=== PATIENT | female | born 1965 | race Caucasian/White ===

== ENCOUNTER 2020-05-09 12:50 | Emergency (ER) | payer OTHER, MEDICAID, SELFPAY ==
[2020-05-09 13:01] VITALS: BP 100/68; PULSE 104; RESP 20; TEMP 37.3; O2SAT 93; BMI 31.6
--- NOTE | 2020-05-09 13:19 | XR_ITS ---
WS: [id number] XR chest 1V portable [id number] REASON FOR EXAM: SOB, fever FINDINGS: The heart and mediastinum are within normal limits. No active pulmonary parenchymal pleural disease is noted. The bony thorax is intact. XR/XR chest 1V portable [id number] IMPRESSION: No acute chest abnormality identified.
--- NOTE | 2020-05-09 13:21 | W.ED.COVID ---
HPI - COVID General: Chief Complaint: COVID symptoms Stated Complaint: H/A, FEVER @ HOME 101.2 Time Seen by Provider: 05/09/20 12:56 Source: patient Mode of arrival: ambulatory Limitations: no limitations Triage information: Has fever, cough or shortness of breath. Exposure to COVID + person last 14 days History of Present Illness: HPI Narrative: Patient is a 55-year-old female whose currently has COVID-19. She states that yesterday she developed a headache and a fever and generalized body aches. Symptoms have been gradually worsening and today she had a temperature of 101.2. She has severe nausea but no vomiting. She is here to be evaluated. She is not diabetic, hypertensive, has no lung disease, he is not on any immunosuppressants, does not have chronic kidney disease. MD complaint: reported COVID exposure and has COVID symptoms Prior covid testing: no COVID 19 common symptoms: positive fever(s), chills, cough, non-productive cough, dyspnea, fatigue, body aches, headache(s), nasal congestion and nausea; negative productive cough, loss of sense of smell and/or taste, throat pain, vomiting or diarrhea COVID 19 other sytmptoms: negative chest pressure, chest pain, pleuritic pain, requiring oxygen, requiring more oxygen, respiratory distress, cyanosis, lethargy, confusion, new neurological complaints or other concerning symptoms Onset (ago): day(s) (1) Severity: moderate Treatment prior to arrival: acetaminophen and ibuprofen COVID Results: SARS-CoV-2 Antigen (Rapid) Positive (Negative) H 05/09/20 13:46 05/09/20 Nasal/Oral Coronavirus 2019 PCR Pending 05/09/20 13:45 05/09/20 Review of Systems General: Reports: 10 or more systems reviewed and unremarkable except in HPI and below Const: Reports: fever(s), chills, body aches and fatigue Eyes: Denies: change in vision or blurry vision ENMT: Reports: nasal congestion; Denies: throat pain Card: Denies: chest pain Resp: Reports: dyspnea and non-productive cough; Denies: productive cough GI: Reports: nausea; Denies: vomiting or diarrhea : Denies: flank pain, difficulty voiding, dysuria, urinary frequency, urinary urgency or urinary hesitancy Musc: Denies: neck pain, back pain or extremity swelling Skin/Breast: Denies: rash, pruritus or erythema Neuro: Reports: headache(s); Denies: confusion Endo: Denies: polyuria, polydipsia or tired all the time Physical Exam Const: COMMON NORMALS: no acute distress, average body habitus, patient oriented x3, no limitations, healthy appearing, alert and well nourished HENMT: COMMON NORMALS: normocephalic, atraumatic and moist oral mucous membranes HEAD & SCALP: normocephalic and atraumatic Neck/C-Spine: COMMON NORMALS: full ROM, supple, no meningeal signs, no JVD and No carotid bruits Resp: COMMON NORMALS: normal respiratory effort, No retractions, No use of accessory muscles, clear to auscultation bilaterally and percussion normal AUSCULTATION: clear to auscultation bilaterally PERCUSSION: percussion normal Cardio: COMMON NORMALS: no JVD, regular rate, regular rhythm, S1 normal heart sound present, S2 normal heart sound present, No gallops present (Cardio), No clicks present (Cardio), No murmurs present (Cardio), No rub (Cardio) and Peripheral pulses 2+ throughout RATE: regular rate RHYTHM: regular rhythm HEART SOUNDS: S1 normal heart sound present and S2 normal heart sound present PERIPHERAL PULSES: Peripheral pulses 2+ throughout GI: COMMON NORMALS: Normal to inspection, nondistended, normoactive bowel sounds present, Soft to palpation, non-tender, No hepatosplenomegaly present, no masses and no bruits PALPATION: Yes Soft to palpation and Yes No hepatosplenomegaly present Neuro: COMMON NORMALS: patient oriented x3 SENSORIUM/ORIENTATION: Yes alert MENINGEAL SIGNS: Yes no meningeal signs Skin: COMMON NORMALS: no rashes or lesions noted, no wounds, turgor normal, no jaundice, no petechiae and no mottling GENERAL SKIN EXAM: no rashes or lesions noted and turgor normal Course Reevaluation(s): Reevaluation #1: Discussed her lab and imaging findings with her. She is positive for COVID-19. Her labs pretty good and her inflammatory markers are not significantly elevated. She does not qualify for Bamlanivimab infusion as she has no comorbidities. We will discharge her home with antiemetics. She is advised to take Tylenol or ibuprofen as needed and to keep well-hydrated. She voiced understanding and is in agreement with the plan. Time: 15:29 Vital Signs: Vital signs: Vital Signs Temperature 99.1 F 05/09/20 13:01 Pulse Rate 85 05/09/20 16:51 Respiratory Rate 18 05/09/20 16:51 Blood Pressure 107/81 05/09/20 16:51 Pulse Oximetry 98 05/09/20 16:51 MDM - COVID MDM Narrative: Medical decision making narrative: 54-year-old female patient who presented to the emergency department with symptoms consistent with a viral illness. She had headaches, body aches, fever. Her was recently diagnosed with COVID-19. And she tested positive for COVID-19 here. Her inflammatory markers were low and she has no comorbidities, so she does not qualify for vomiting Bamlanivimab infusion. She is discharged home with a pulse oximeter. She did not qualify for home oxygen. She had a mild case of hypokalemia. Medical Records: Attestation: I reviewed the patient's medical records. Lab Data: Attestation: I reviewed the patient's lab results. Labs: Lab Results 05/09/20 05/09/20 05/09/20 Range/Units 13:40 13:40 13:40 WBC 6.1 (4.0-10.0) 10^3/ uL RBC 4.26 (4.1-5.3) 10^6/u L Hgb 13.2 (11.5-15.3) g/dL Hct 39.5 (37.0-47.0) % MCV 92.7 (81-99) fL MCH 31.0 (28.0-34.0) pg MCHC 33.4 (30.0-36.0) g/dL RDW 13.2 (12.1-15.1) % Plt Count 228 (130-400) 10^3/c mm MPV 9.7 (7.4-10.4) fL Neut % (Auto) 63.0 % Lymph % (Auto) 26.7 % Dickenson % (Auto) 8.4 % Eos % (Auto) 1.0 % Baso % (Auto) 0.7 % Neut # (Auto) 3.83 (1.8-7.7) 10^3/u L Lymph # (Auto) 1.6 (0.8-4.8) 10^3/u L Dickenson # (Auto) 0.5 (0.2-0.9) 10^3/u L Eos # (Auto) 0.1 (0.0-0.8) 10^3/u L Baso # (Auto) 0.0 (0.0-0.1) 10^3/u L Nucleated RBC % (a uto) 0 % Nucleated RBCs # 0.0 /100WBC D-Dimer 0.83 H (0-0.59) ug/mIFE U Sodium 140 (136-145) mmol/L Potassium 3.2 L (3.5-5.1) mmol/L Chloride 103 (98-107) mmol/L Carbon Dioxide 25 (22-29) mmol/L Anion Gap 15.2 (5-19) BUN 10 (6-20) mg/dL Creatinine 0.7 (0.5-0.9) mg/dL GFR Calculation 87.9 L (90-130) mL/min Glucose 133 H (65-115) mg/dL Calculated Osmolal ity 291 (285-295) mOsm/k g Lactic Acid (0.5-2.2) mmol/L Calcium 8.9 (8.5-10.5) mg/dL Total Bilirubin 0.2 (0.15-1.2) mg/dL AST 21 (0-32) U/L ALT 18 (0-33) U/L Alkaline Phosphata se 83 (35-105) IU/L C-Reactive Protein 8.4 H (0.0-4.9) mg/L Total Protein 6.7 (6.6-8.7) g/dL Albumin 3.9 (3.5-5.2) g/dL Globulin 2.8 (1.3-4.6) g/dL Procalcitonin 0.03 (0-0.5) ng/mL SARS-CoV-2 Ag (Rap id) (Negative) 05/09/20 05/09/20 Range/Units 13:40 13:46 WBC (4.0-10.0) 10^3/ uL RBC (4.1-5.3) 10^6/u L Hgb (11.5-15.3) g/dL Hct (37.0-47.0) % MCV (81-99) fL MCH (28.0-34.0) pg MCHC (30.0-36.0) g/dL RDW (12.1-15.1) % Plt Count (130-400) 10^3/c mm MPV (7.4-10.4) fL Neut % (Auto) % Lymph % (Auto) % Dickenson % (Auto) % Eos % (Auto) % Baso % (Auto) % Neut # (Auto) (1.8-7.7) 10^3/u L Lymph # (Auto) (0.8-4.8) 10^3/u L Dickenson # (Auto) (0.2-0.9) 10^3/u L Eos # (Auto) (0.0-0.8) 10^3/u L Baso # (Auto) (0.0-0.1) 10^3/u L Nucleated RBC % (a uto) % Nucleated RBCs # /100WBC D-Dimer (0-0.59) ug/mIFE U Sodium (136-145) mmol/L Potassium (3.5-5.1) mmol/L Chloride (98-107) mmol/L Carbon Dioxide (22-29) mmol/L Anion Gap (5-19) BUN (6-20) mg/dL Creatinine (0.5-0.9) mg/dL GFR Calculation (90-130) mL/min Glucose (65-115) mg/dL Calculated Osmolal ity (285-295) mOsm/k g Lactic Acid 1.1 (0.5-2.2) mmol/L Calcium (8.5-10.5) mg/dL Total Bilirubin (0.15-1.2) mg/dL AST (0-32) U/L ALT (0-33) U/L Alkaline Phosphata se (35-105) IU/L C-Reactive Protein (0.0-4.9) mg/L Total Protein (6.6-8.7) g/dL Albumin (3.5-5.2) g/dL Globulin (1.3-4.6) g/dL Procalcitonin (0-0.5) ng/mL SARS-CoV-2 Ag (Rap id) Positive H (Negative) Imaging Data: CXR: Attestation: I personally reviewed and interpreted this imaging study as follows: Radiologist's impression: [address] [place] [address] XRay Report Signed Patient: Charito Israel #: [id number] : 1965Acct#:[id number] Age/Sex: 54 / FADM Date: 05/09/20 Loc: ERRoom/Bed: Attending Dr: Ordering Provider/Ordering MD: Denzel Abernathy MD, [facility] [place] Date of Service: 05/09/20 Procedure(s): XR chest 1V portable [id number] Accession Number(s): [id number] Report Number: [id number] WS: [id number] XR chest 1V portable [id number] REASON FOR EXAM: SOB, fever FINDINGS: The heart and mediastinum are within normal limits. No active pulmonary parenchymal pleural disease is noted. The bony thorax is intact. XR/XR chest 1V portable [id number] IMPRESSION: No acute chest abnormality identified. Dictated By:Maninder Shah Jr, MD Signed By:Maninder Shah Jr MDSigned Date/Time:05/09/201336 DD/ 133 COVID Results: SARS-CoV-2 Antigen (Rapid) Positive (Negative) H 05/09/20 13:46 05/09/20 Nasal/Oral Coronavirus 2019 PCR Pending 05/09/20 13:45 05/09/20 Discharge Plan Discharge Patient Disposition: Home Clinical Impression: COVID-19, Hypokalemia Condition: Stable Prescriptions: New Zofran 4 mg tablet 4 mg PO Q8H PRN (Reason: nausea and vomiting) Qty: 20 RF: 0 Continued multivitamin Tablet 1 tab PO DAILY@08 RF: 0 venlafaxine 150 mg capsule,extended release 24hr 150 mg PO DAILY@08 RF: 0 pantoprazole 40 mg tablet,delayed release (DR/EC) 40 mg PO DAILY@08 RF: 0 cranberry 400 mg Capsule 400 mg PO DAILY@08 RF: 0 vitamin B complex Tablet 1 tab PO DAILY@08 RF: 0 Discharge Orders: Discharge ED (Routine); Ordered 05/09/20 Ordered By: Denzel Abernathy Referrals: Kimberly Begum, STUDENT WORKER [Primary Care Provider] - 1-3 days Discharge Diet: Advance as tolerated Discharge Activity: Increase activity as tolerated Patient Instructions: Viral Syndrome (ED) Activity Restrictions/Additional Instructions: Return for any new or worsening symptoms. You need to self isolate for at least 10 days after your symptoms started and you must be symptom-free for at least 48 hours of pain or fever medication. Take the nausea medicine as needed for nausea. Drink plenty of fluids to keep well-hydrated. Follow-up with your primary care provider within 3 days. Check oxygen levels and if you notice a drop in your oxygen levels consistently below 92% please return for evaluation. Coding Level of Care Code ED Transit Manager for Alphonse Fwolivia Exam Detailed
[2020-05-09 13:52] VITALS: O2SAT 92
[2020-05-09 14:00] LABS: Basophils % 0.7 %; Eosinophils # 0.1 10^3/uL (0.0-0.8); Hematocrit 39.5 % (37.0-47.0); Hemoglobin 13.2 g/dL (11.5-15.3); Lymphocytes # 1.6 10^3/uL (0.8-4.8); Lymphocytes % 26.7 %; Mean Corpuscular HGB Conc 33.4 g/dL (30.0-36.0); Mean Corpuscular Volume 92.7 fL (81-99); Mean Platelet Volume 9.7 fL (7.4-10.4); Monocytes # 0.5 10^3/uL (0.2-0.9); Monocytes % 8.4 %; Neutrophils # 3.83 10^3/uL (1.8-7.7); Nucleated Red Blood Cells % 0 %; Platelet Count 228 10^3/cmm (130-400); Red Blood Count 4.26 10^6/uL (4.1-5.3); Red Cell Distribution Width 13.2 % (12.1-15.1); White Blood Count 6.1 10^3/uL (4.0-10.0)
[2020-05-09 14:17] LABS: SARS Covid-2 Antigen Positive (Negative)
[2020-05-09 14:20] LABS: D Dimer 0.83 ug/mIFEU (0-0.59)
[2020-05-09 14:24] LABS: Lactic Sepsis W/Reflex 1.1 mmol/L (0.5-2.2)
[2020-05-09 14:33] LABS: Procalcitonin 0.03 ng/mL (0-0.5)
[2020-05-09 14:44] LABS: Alanine Aminotransferase 18 U/L (0-33); Albumin Level 3.9 g/dL (3.5-5.2); Alkaline Phosphatase 83 IU/L (35-105); Anion Gap 15.2 (5-19); Aspartate Amino Transferase 21 U/L (0-32); Blood Urea Nitrogen 10 mg/dL (6-20); C Reactive Protein 8.4 mg/L (0.0-4.9); Calcium 8.9 mg/dL (8.5-10.5); Carbon Dioxide 25 mmol/L (22-29); Chloride 103 mmol/L (98-107); Creatinine Clr Calc Pharmacy 101.9197; Globulin 2.8 g/dL (1.3-4.6); Glomerular Filtration Rate 87.9 mL/min (90-130); Glucose 133 mg/dL (65-115); Osmolality Calculated 291 mOsm/kg (285-295); Potassium 3.2 mmol/L (3.5-5.1); Sodium 140 mmol/L (136-145); Total Bilirubin 0.2 mg/dL (0.15-1.2); Total Protein 6.7 g/dL (6.6-8.7)
[2020-05-09 15:41] VITALS: O2SAT 95; O2SAT 98
[2020-05-09] MEDS: ondansetron 2 mg/ML SDV 2 mL 4 MG IVP (16:08)
[2020-05-09] MEDS: potassium chloride oral liq 20 mEq/15 mL UDC 40 MEQ PO (16:08)
[2020-05-09 16:51] VITALS: BP 107/81; PULSE 85; RESP 18; O2SAT 98
== END 2020-05-09 16:48 | disposition home or self-care (01) ==
PROVIDERS: Emergency Provider Family Medicine; PCP Nurse Practitioner Family
DX: U07.1 COVID-19 (principal); E87.6 Hypokalemia
CPT/HCPCS: 12345; 71045; 80053; 83605; 84145; 85025; 85378; 86140; 87426; 96374; 96375; 99283; J2405

== ENCOUNTER → 2020-11-22 12:04 | Outpatient (BNVA) | payer OTHER, SELFPAY | PROVIDERS: PCP Nurse Practitioner Family; Visit Provider Internal Medicine | DX: Z01.812 Encounter for preprocedural laboratory examination (principal); R10.11 Right upper quadrant pain | CPT/HCPCS: 87635 ==

== ENCOUNTER 2020-11-28 08:34 | Day surgery (SDC) | payer OTHER, SELFPAY ==
--- NOTE | 2020-11-28 09:08 | ANES.PREANE2 ---
Pre-Anesthetic Assessment Pre-Anesthetic Assessment: Height/Weight: Height 1.65 m Weight 79.832 kg Temp Pulse Resp BP Pulse Ox 97.7 F 98 18 167/103 97 11/28/20 09:02 11/28/20 09:02 11/28/20 09:02 11/28/20 09:02 11/28/20 09:02 Preop Diagnosis: RUQ pain Proposed Procedure: Operation Date: 11/28/20 09:30 Proposed Procedures p EGD 58044 R10.11(Not Applicable) - Rebel Betts MD Was Beta Pablo taken within 24 hours: N/A Was Clonidine taken within 24 hours: N/A Last intake: Intake Last Liquid Date 11/27/20 Last Liquid Time 20:00 Last Solid Date 11/26/20 Last Solid Time 20:00 Social: Social History: No alcohol and No tobacco Exam: Pre-Anes Outpt Exam: alert, oriented x 3, clear to auscultation bilaterally and regular rate & rhythm Airway: Submandibular: WNL Cervical ROM: WNL MP: 1 Dentition: Full GI: GI: GERD Neuropsych: Neuropsych: Depression Anesthetic Plan: ASA status: 2 Anesthesia: MAC Risk of > 500 ml blood loss (7ml/kg in children): No PFSH Anesthesia PFSH: Family History Other Cancer Diabetes Heart disease Social History Smoking and tobacco status: current every day smoker Alcohol intake: never Marital status: Number of children: 2 service: No History of recent travel: No Data Anesthesia Cardiac Studies: No Data to Display
[2020-11-28 09:10] VITALS: BP 133/75; PULSE 75; RESP 16; TEMP 36.7; O2SAT 98
[2020-11-28] MEDS: sodium chloride 0.9% 1,000 ML 30 ML IV (09:23)
--- NOTE | 2020-11-28 09:27 | P.HP_ITS ---
Same Day Surgery H&P Indication for Procedure/HPI DATE OF PROCEDURE: November 28, 2020 CHIEF COMPLAINT/INDICATIONFOR SURGICAL PROCEDURE: Abdominal pain PREOP DIAGNOSIS: RUQ pain PLANNED PROCEDRUE: Operation Date: 11/28/20 09:30 Proposed Procedures p EGD 21555 R10.11(Not Applicable) - Rebel Betts MD Medications/Allergies* Home Medications Medication Instructions Recorded Confirmed Type cranberry 400 mg PO DAILY@05/09/20 11/24/20 History multivitamin 1 tab PO DAILY@05/09/20 11/24/20 History pantoprazole 40 mg PO DAILY@05/09/20 11/24/20 History venlafaxine 150 mg PO DAILY@05/09/20 11/24/20 History vitamin B complex 1 tab PO DAILY@05/09/20 11/24/20 History Lacto.acidophilus-Bif.animalis 1 cap PO DAILY 11/24/20 11/24/20 History [Probiotic] Allergies/Adverse Reactions Allergy/AdvReac Type Severity Reaction Status Date / Time cephalexin [From Keflex] Allergy Unknown Verified 11/18/20 12:31 Sulfa (Sulfonamide Allergy Unknown Verified 11/18/20 12:31 Antibiotics) sulfamethoxazole Allergy Unknown Verified 11/18/20 12:31 [From Bactrim] trimethoprim [From Bactrim] Allergy Unknown Verified 11/18/20 12:31 Current Medications: Generic Name Dose Route Start Last Admin Trade Name Freq PRN Reason Stop Dose Admin Sodium Chloride 1,000 mls @ 30 mls/hr 11/28/20 08:45 11/28/20 09:23 Sodium Chloride 0.9% IV 11/29/20 08:44 30 mls/hr .Q24H PIETER Administration Pertinent History/Comorbid Conditions* Family History (Updated 11/17/20 @ 14:02 by JACKELYN Uribe) Diabetes Heart disease Cancer Social History Smoking and tobacco status: current every day smoker Alcohol intake: never Marital status: Number of children: 2 service: No History of recent travel: No Pertinent Exam Findings alert, oriented x 3, clear to auscultation bilaterally, regular rate & rhythm, operative site marked and procedure specific exam findings Recommendations Surgery/Procedure today Coding Level of Care Code Acute Help Desk Support Specialist for Alphonse Yancey
[2020-11-28 10:00] VITALS: BP 91/56; PULSE 75; RESP 16; TEMP 36.1; O2SAT 96
[2020-11-28 10:21] VITALS: BP 113/79; PULSE 65; RESP 18; O2SAT 100
--- NOTE | 2020-11-28 10:23 | US_ITS ---
WS: [id number] ULTRASOUND ABDOMEN CLINICAL INFORMATION: POSTPRANDIAL ABDOMINAL PAIN RIGHT UPPER QUADRANT COMPARISON: None. FINDINGS: Liver Size: Mild hepatomegaly Craniocaudal length: 16.8 cm. Echogenicity: Normal. Surface nodularity: None. Mass (size and location): None. Bile ducts Intrahepatic ducts: Normal. Common bile duct diameter: 0.61 cm. Gallbladder Normal. Gallstones: None. Gallbladder sludge: None. Gallbladder wall thickening: None. Pericholecystic fluid: None. Sonographic Pineda sign: Absent. Pancreas Normal as visualized. Spleen Splenomegaly: None. Craniocaudal length: 9.7 cm. Right kidney: Normal. Hydronephrosis: None. Size: 9.7 cm x 5.5 cm x 5.3 cm Left kidney: Normal. Hydronephrosis: None. Size: 10.1 cm x 5.4 cm x 4.7 cm. Abdominal aorta and IVC Visualized portions are normal. Ascites: None. Bladder is decompressed. US/US abdomen complete* [id number] IMPRESSION: 1. Mild hepatomegaly. 2. Gallbladder and common bile duct are normal. 3. Slightly prominent renal pelvis bilaterally. No hydronephrosis.
--- NOTE | 2020-11-28 15:27 | ANE.PACU2 ---
Inpatient post-anesthesia follow up: Airway intact: Yes Vital signs: Temperature 97 F Pulse Rate 65 Respiratory Rate 18 Blood Pressure 113/79 Pulse Oximetry 100 Oxygen Delivery Me thod Room Air Oxygen Flow Rate 2 Fraction of Inspir ed Oxygen Hydration adequate: Yes Nausea and vomiting: No Pain level: 1 Mental status: Baseline
== END 2020-11-28 10:30 | disposition home or self-care (01) ==
PROVIDERS: PCP Nurse Practitioner Family; Visit Provider Internal Medicine
PROC: 0DJ08ZZ Inspection of Upper Intestinal Tract, Via Natural or Artificial Opening Endoscopic (ICD-10-PCS; CPT 43235; principal; 2020-11-28 09:30)
DX: R10.11 Right upper quadrant pain (principal); Z82.49 Family history of ischemic heart disease and other diseases of the circulatory system; Z83.3 Family history of diabetes mellitus; F17.210 Nicotine dependence, cigarettes, uncomplicated; K21.9 Gastro-esophageal reflux disease without esophagitis; F32.9 Major depressive disorder, single episode, unspecified
CPT/HCPCS: 43235; 76700; 96360; J2704; J7030

== ENCOUNTER → 2020-12-07 11:53 | Outpatient (BNVA) | payer OTHER, SELFPAY | PROVIDERS: PCP Nurse Practitioner Family; Visit Provider Nurse Practitioner Family | DX: Z20.822 Contact with and (suspected) exposure to COVID-19 (principal); J06.9 Acute upper respiratory infection, unspecified | CPT/HCPCS: 87635 ==

== ENCOUNTER → 2020-12-30 13:06 | Outpatient (BNVA) | payer OTHER, SELFPAY | PROVIDERS: PCP Nurse Practitioner Family; Visit Provider Nurse Practitioner Family | DX: Z20.822 Contact with and (suspected) exposure to COVID-19 (principal); J06.9 Acute upper respiratory infection, unspecified | CPT/HCPCS: 87635 ==

== ENCOUNTER 2021-01-06 11:33 | Day surgery (SDC) | payer OTHER, SELFPAY ==
[2021-01-04 15:04] VITALS: BMI 29.1
[2021-01-06] VITALS (13 sets, daily range): BP systolic 108–131; BP diastolic 64–86; PULSE 54–79; RESP 14–18; TEMP 36.2–36.5; O2SAT 93–100
--- NOTE | 2021-01-06 12:19 | W.PM.OPSFHP ---
Same Day Surgery H&P Indication for Procedure/HPI DATE OF PROCEDURE: January 06, 2021 CHIEF COMPLAINT/INDICATIONFOR SURGICAL PROCEDURE: cholecystectomy PREOP DIAGNOSIS: Chronic cholecystitis PLANNED PROCEDRUE: Operation Date: 01/06/21 13:25 Proposed Procedures p Laparoscopic Cholecystectomy 13581 r10.11(Not Applicable) - Pee Steve MD Medications/Allergies* Home Medications Medication Instructions Recorded Confirmed Type cranberry 400 mg PO DAILY@05/09/20 01/06/21 History multivitamin 1 tab PO DAILY@05/09/20 01/06/21 History pantoprazole 40 mg PO DAILY@05/09/20 01/06/21 History venlafaxine 150 mg PO DAILY@05/09/20 01/06/21 History vitamin B complex 1 tab PO DAILY@05/09/20 01/06/21 History Probiotic 1 cap PO DAILY 11/24/20 01/06/21 History Allergies/Adverse Reactions Allergy/AdvReac Type Severity Reaction Status Date / Time cephalexin [From Keflex] Allergy Unknown Verified 01/04/21 15:00 Sulfa (Sulfonamide Allergy Unknown Verified 01/04/21 15:00 Antibiotics) sulfamethoxazole Allergy Unknown Verified 01/04/21 15:00 [From Bactrim] trimethoprim [From Bactrim] Allergy Unknown Verified 01/04/21 15:00 Pertinent History/Comorbid Conditions* Medical History (Updated 01/03/21 @ 08:51 by Pee Steve MD) Depression PUD (peptic ulcer disease) Surgical History (Updated 01/03/21 @ 08:51 by Pee Steve MD) H/O esophagogastroduodenoscopy H/O shoulder surgery History of section History of colonoscopy 2018 Family History (Updated 11/17/20 @ 14:02 by JACKELYN Uribe) Diabetes Heart disease Cancer Social History Alcohol intake: never Marital status: Number of children: 2 service: No History of recent travel: No Pertinent Exam Findings alert, oriented x 3 and regular rate & rhythm Recommendations Surgery/Procedure today Coding Level of Care Code Acute Director Of Accounting for Chg Naye
[2021-01-06] MEDS: sodium chloride 0.9% 1,000 ML 30 ML IV (12:28)
--- NOTE | 2021-01-06 12:34 | ANES.PREANE2 ---
Pre-Anesthetic Assessment Pre-Anesthetic Assessment: Height/Weight: Height 1.65 m Weight 79.379 kg Temp Pulse Resp BP Pulse Ox 97.1 F L 76 16 109/83 95 01/06/21 12:07 01/06/21 12:07 01/06/21 12:07 01/06/21 12:07 01/06/21 12:07 Preop Diagnosis: Chronic cholecystitis Proposed Procedure: Operation Date: 01/06/21 13:25 Proposed Procedures p Laparoscopic Cholecystectomy 80834 r10.11(Not Applicable) - Pee Steve MD Familial anesthetic complications: none Was Beta Pablo taken within 24 hours: N/A Was Clonidine taken within 24 hours: N/A Last intake: Intake Last Liquid Date 01/05/21 Last Liquid Time 22:30 Last Solid Date 01/05/21 Last Solid Time 13:00 Social: Social History: Tobacco and No alcohol Exam: Pre-Anes Outpt Exam: alert, oriented x 3, clear to auscultation bilaterally and regular rate & rhythm Airway: Cervical ROM: WNL MP: 2 Dentition: Full GI: GI: GERD Anesthetic Plan: ASA status: 2 Anesthesia: General Risk of > 500 ml blood loss (7ml/kg in children): No Meds/Allergies Current Medications: Current Medications Generic Name Dose Route Start Last Admin Trade Name Freq PRN Reason Stop Dose Admin Sodium Chloride 1,000 mls @ 30 ml s/hr 01/06/21 12:00 01/06/21 12:28 Sodium Chloride 0.9% IV 01/07/21 11:59 30 mls/hr .Q24H PIETER Administration PFSH Anesthesia PFSH: Medical History Depression PUD (peptic ulcer disease) Surgical History H/O esophagogastroduodenoscopy H/O shoulder surgery History of section History of colonoscopy 2018 Family History Other Cancer Diabetes Heart disease Social History Alcohol intake: never Marital status: Number of children: 2 service: No History of recent travel: No Data Anesthesia Cardiac Studies: No Data to Display
[2021-01-06] MEDS: ciprofloxacin 400 MG/200 ML PREMIX 200 MG IV (15:13)
--- NOTE | 2021-01-06 16:02 | PM.OP ---
Operative Report Date of procedure: January 06, 2021 Pre-op Diagnosis: Chronic cholecystitis Post-op diagnosis: same Procedure Done: Laparoscopic possible open cholecystectomy Specimens removed/disposition: Gallbladder Surgeon: Pee Steve Anesthesia: General Condition: stable Disposition: PACU Procedure: The patient was taken to the operating room and was intubated under general anesthesia. After the antibiotic had been administered, the abdomen was prepped and draped in a sterile manner. Using a #15 blade, a 1 centimeter infraumbilical curvilinear incision was made and using an open Tiana technique the peritoneal cavity was entered. A 10 millimeter port was placed and 15 millimeters of pneumoperitoneum was created. A 10 millimeter, 30 degrees scope was then introduced. Three 5 millimeter ports were placed in the epigastric, midclavicular and the anterior axillary line two fingerbreadths below the costal margin on the right side under the direct visualization. Ratcheted forceps were introduced into the lateral most port and was used to retract the fundus of the gallbladder cephalad and using forceps the infundibulum of the gallbladder was retracted laterally. Using L-hook cautery the peritoneum overlying the Calot's triangle was opened medially and laterally until the cystic duct and the cystic artery were skeletonized. Dissection was carried along the body of the gallbladder and after ensuring critical view of safety, 4 clips applied on the cystic duct and 3 clips applied on the cystic artery and cut leaving, 3 clips on the remaining portion of the duct and 2 clips on the remaining portion of the artery. The rest of the gallbladder was dissected off the liver using L-hook cautery. There was no bleeding or bile leaking noted from the gallbladder fossa and the clips appeared to be in place. An EndoCatch bag was introduced to remove the gallbladder. All the ports were removed under direct visualization and there was no bleeding noted from the port sites. The fascia of the umbilicus was closed using [id number] 0 Vicryl sutures and the subcutaneous tissue was approximated using 3-0 Vicryl sutures. The skin at all four ports were closed using 4-0 Monocryl and Dermabond. A total of 10 millimeters of 0.5% Marcaine was infiltrated around the port sites. The patient was stable throughout the procedure.
[2021-01-06] MEDS: ondansetron 2 mg/ML SDV 2 mL 4 MG IVP (16:13)
[2021-01-06] MEDS: metoclopramide 5 mg/mL SDV 2 mL 10 MG IVP ×2 (16:18→16:23)
[2021-01-06] MEDS: fentaNYL 50 mcg/mL INJ 2mL IVP (16:32)
[2021-01-06] MEDS: HYDROcodone-acetaminophen 5-325 mg Tablet 1 TAB PO (17:26)
== END 2021-01-06 17:35 | disposition home or self-care (01) ==
PROVIDERS: PCP Nurse Practitioner Family; Visit Provider Surgery
PROC: 0FT44ZZ Resection of Gallbladder, Percutaneous Endoscopic Approach (ICD-10-PCS; CPT 47562; principal; 2021-01-06 13:25)
DX: K81.1 Chronic cholecystitis (principal); Z83.3 Family history of diabetes mellitus; Z82.49 Family history of ischemic heart disease and other diseases of the circulatory system; F32.9 Major depressive disorder, single episode, unspecified; Z87.11 Personal history of peptic ulcer disease
CPT/HCPCS: 47562; 88304; J0744; J1100; J1885; J2405; J2704; J2710; J2765; J3010; J3490; J7030

== ENCOUNTER 2021-09-28 10:48 | Emergency (ER) | payer SELFPAY ==
[2021-09-28 11:18] VITALS: BP 136/85; PULSE 78; RESP 15; TEMP 36.6; O2SAT 99; BMI 28.1
--- NOTE | 2021-09-28 12:41 | ED_ITS ---
HPI - General Adult General: Chief complaint: Back Pain/Injury Stated complaint: Neck Pain, Nausia Time Seen by Provider: 09/28/21 12:03 History of Present Illness: Patient is a 56-year-old female who presents the emergency room for evaluation of neck and upper back pain with radiation to the arms. Patient tells me for the last 2 days she has had cervical and thoracic back pain with paresthesia down the arms bilaterally. Patient tells me the pain is constant she went to see a chiropractor was then told to come to the emergency room for further evaluation. Patient says the pain is worse with movement of the head. Patient reports paresthesia with movement of the hip. Denies any focal weakness, family history aneurysm, sudden sudden onset headache, focal neurological deficits nausea/vomiting. Patient has taken a muscle relaxer with mild improvement in symptoms. Patient tells me that she feels like there are knots in the back of her neck and her upper back. Patient denies any heavy lifting, recent trauma or fall, or other injuries at this time. Patient denies any chest pain, shortness breath, palpitation lightheadedness, nausea/vomiting with diarrhea, melena/anesthesia, or complaints. Onset:3 days ago Duration:3 days Location:home Severity:moderate Associated symptoms: Deny chest pain, dyspnea, nausea, rash, palpitations or vomiting Review of Systems Const: Denies: fever(s) or chills Eyes: Denies: change in vision ENMT: Denies: mouth pain Card: Denies: chest pain or palpitations Resp: Denies: dyspnea or non-productive cough GI: Denies: abdominal pain, nausea, vomiting or diarrhea : Denies: dysuria Musc: Reports: neck pain and other (+upper back pain); Denies: extremity pain Skin/Breast: Denies: rash or new lesions Neuro: Denies: weakness in extremities Psych: Reports: other (Normal mood) Prem/Lymph: Denies: easy bruising PFSH ED PFSH: Medical History Depression Postprandial abdominal pain in right upper quadrant PUD (peptic ulcer disease) Surgical History H/O esophagogastroduodenoscopy H/O shoulder surgery History of section History of colonoscopy 2018 Status post laparoscopic cholecystectomy (01/06/21) Family History Other Cancer Diabetes Heart disease Social History Alcohol intake: never Marital status: Number of children: 2 service: No History of recent travel: No Physical Exam Const: COMMON NORMALS: alert HENMT: COMMON NORMALS: atraumatic HEAD & SCALP: atraumatic MOUTH: moist mucous membranes not abnormal Eye: COMMON NORMALS: EOMs intact bilaterally and conjunctivae normal CONJUNCTIVA: Yes conjunctivae normal Neck/C-Spine: COMMON NORMALS: full ROM and supple OTHER: + No meningismus or nuchal rigidity + Mild palpable mid cervical area of muscle tension + No midline tenderness palpation over the bony prominences Resp: COMMON NORMALS: normal respiratory effort and clear to auscultation bilaterally AUSCULTATION: clear to auscultation bilaterally Cardio: COMMON NORMALS: regular rate RATE: regular rate GI: COMMON NORMALS: Soft to palpation and non-tender PALPATION: Yes Soft to palpation Back/Pelvis: OTHER: + Mild palpable mid thoracic area of muscle tension Extremity: COMMON NORMALS: full ROM Neuro: SENSORIUM/ORIENTATION: Yes alert MOTOR EXAM: No Abnormal motor strength present and Other motor observations present (no focal motor deficits) Psych: COMMON NORMALS: speech normal SPEECH: Yes normal speech MOOD & AFFECT: Yes euthymic mood Course Vital Signs: Vital signs: Vital Signs Temperature 97.9 F 09/28/21 11:18 Pulse Rate 63 09/28/21 13:57 Respiratory Rate 16 09/28/21 13:57 Blood Pressure 115/80 09/28/21 13:57 Pulse Oximetry 99 09/28/21 13:57 MDM - General Adult Medical Decision Making 56-year-old female presenting to the emergency room with complaints of neck pain and upper back pain with radiation to the arms bilaterally 3 days. On physical exam, patient has no associated meningismus. There is a palpable muscle tension. Patient received Toradol, IM morphine, lidocaine patch with improvement in pain. Patient instructed follow-up with her primary care provider for further evaluation and possible trigger point injection/invasive pain control if medications do not work. I doubt that this is subarachnoid bleed given the fact the patient has not had any significant headache of his life, headaches associate with other symptoms, has no family history of aneurysm. At the present time, also do not suspect meningitis given the fact that there is no nuchal rigidity, patient is afebrile, range of motion of the neck intact. Do not suspect any other acute pathology excluding vascular dissection, TIA, or stroke. Rx: norflex, tylenol, lidocaine patch, and menthol PRN pain Disposition: Discharge. Patient counseled regarding diagnostic impression, treatment plan. Patient given ED strict return precautions to return for continuation, worsening, or development of new symptoms. Instructed to f/u w/ PCP regarding symptoms today. Patient verbalized understanding. Discharge Plan Discharge Patient Disposition: Home Clinical Impression: Back pain, Neck pain Condition: Stable Prescriptions: New acetaminophen 500 mg tablet 500 mg PO Q6H PRN (Reason: pain) 5 Days Qty: 20 0RF lidocaine 5 % adhesive patch,medicated 1 patch topical DAILY PRN (Reason: pain) 30 Days Qty: 30 0RF Rx Instructions: leave on most painful area for up to 12 hrs orphenadrine citrate 100 mg tablet extended release 100 mg PO BID PRN (Reason: pain) 10 Days Qty: 20 0RF Biofreeze (menthol) 5 % gel 1 ea topical BID PRN (Reason: pain) 10 Days Qty: 1 0RF No Action albuterol sulfate [Ventolin HFA] 90 mcg/actuation HFA aerosol inhaler 2 puff inhalation Q6H PRN (Reason: shortness of breath or wheezing) Qty: 8.5 0RF multivitamin Tablet 1 tab PO DAILY@08 0RF venlafaxine 150 mg capsule,extended release 24hr 150 mg PO DAILY@08 0RF pantoprazole 40 mg tablet,delayed release (DR/EC) 40 mg PO DAILY@08 0RF cranberry 400 mg Capsule 400 mg PO DAILY@08 0RF vitamin B complex Tablet 1 tab PO DAILY@08 0RF hydrocodone-acetaminophen 5-325 mg tablet 1 tab PO Q6H PRN (Reason: pain) Qty: 20 0RF Zofran 4 mg tablet 4 mg PO Q6H PRN (Reason: nausea and vomiting) Qty: 20 0RF Colace 100 mg capsule 100 mg PO BID Qty: 30 0RF Probiotic 5 billion cell Capsule, Sprinkle 1 cap PO DAILY 0RF Discharge Orders: Discharge ED (Routine); Ordered 09/28/21 Ordered By: Bertram Allison Referrals: Kimberly Begum, [employer] [Primary Care Provider] - Discharge Diet: Advance as tolerated Discharge Activity: Increase activity as tolerated Activity Restrictions/Additional Instructions: Please take your pain medicine as instructed. Please do stretching exercises, warm compresses wound, ice to the affected area of pain. Please follow-up with a primary care provider for possible trigger point injection. Stand Alone Forms: Work/School Release Coding Level of Care Code ED Dobby Loom Weaver for Chg Fwd Exam Comprehensive
[2021-09-28 12:57] VITALS: RESP 16
[2021-09-28] MEDS: ketorolac 30 mg/mL INJ IM (12:57)
[2021-09-28] MEDS: morphine 4 mg/mL SDV 1 mL IM (12:57)
[2021-09-28 13:17] VITALS: BP 112/75; PULSE 64; RESP 16; O2SAT 99
[2021-09-28] MEDS: lidocaine 5% Patch 1 PATCH TOPICAL (13:45)
[2021-09-28 13:57] VITALS: BP 115/80; PULSE 63; RESP 16; O2SAT 99
== END 2021-09-28 13:58 | disposition home or self-care (01) ==
PROVIDERS: Emergency Provider Emergency Medicine; PCP Nurse Practitioner Family
DX: M54.2 Cervicalgia (principal); M54.9 Dorsalgia, unspecified
CPT/HCPCS: 96372; 99283; J1885; J2270

== ENCOUNTER → 2021-11-20 17:45 | Outpatient (BNVA) | payer BC, MEDICAID, SELFPAY | PROVIDERS: PCP Family Medicine Adult Medicine; Visit Provider Family Medicine | DX: R39.9 Unspecified symptoms and signs involving the genitourinary system (principal); N30.01 Acute cystitis with hematuria | CPT/HCPCS: 81000 ==

== ENCOUNTER → 2021-12-27 14:00 | Outpatient (BNVA) | payer BC, MEDICAID, SELFPAY | PROVIDERS: PCP Family Medicine Adult Medicine; Referring Provider Family Medicine Adult Medicine; Visit Provider Podiatrist Foot & Ankle Surgery | DX: M79.671 Pain in right foot (principal); L85.1 Acquired keratosis [keratoderma] palmaris et plantaris; M77.41 Metatarsalgia, right foot | CPT/HCPCS: 17110; 99203 ==

== ENCOUNTER → 2022-01-20 14:53 | Outpatient (BNVA) | payer BC, MEDICAID, SELFPAY | PROVIDERS: PCP Family Medicine Adult Medicine; Visit Provider Registered Nurse Neonatal Intensive Care | DX: S99.911A Unspecified injury of right ankle, initial encounter (principal); X58.XXXA Exposure to other specified factors, initial encounter; R60.0 Localized edema | CPT/HCPCS: 73610 ==

== ENCOUNTER → 2022-02-06 16:35 | Outpatient (BNVA) | payer BC, MEDICAID, SELFPAY | PROVIDERS: PCP Family Medicine Adult Medicine; Visit Provider Registered Nurse Neonatal Intensive Care | DX: N39.0 Urinary tract infection, site not specified (principal) | CPT/HCPCS: 81000 ==

== ENCOUNTER → 2022-04-10 15:40 | Outpatient (BNVA) | payer BC, MEDICAID, SELFPAY | PROVIDERS: PCP Family Medicine Adult Medicine; Visit Provider Family Medicine Adult Medicine | DX: R68.82 Decreased libido (principal); Z78.0 Asymptomatic menopausal state; N95.2 Postmenopausal atrophic vaginitis; R53.83 Other fatigue; K27.9 Peptic ulcer, site unspecified, unspecified as acute or chronic, without hemorrhage or perforation | CPT/HCPCS: 80053; 82672; 84144; 84443; 85025 ==

== ENCOUNTER → 2022-05-14 16:21 | Outpatient (BNVA) | payer BC, MEDICAID, SELFPAY | PROVIDERS: PCP Family Medicine Adult Medicine; Visit Provider Registered Nurse Neonatal Intensive Care | DX: N39.0 Urinary tract infection, site not specified (principal) | CPT/HCPCS: 81000; 87077; 87086; 87184 ==

== ENCOUNTER → 2022-08-31 10:36 | Outpatient (BNVA) | payer BC, MEDICAID, SELFPAY | PROVIDERS: PCP Family Medicine Adult Medicine; Visit Provider Family Medicine Adult Medicine | DX: E78.5 Hyperlipidemia, unspecified (principal); R73.9 Hyperglycemia, unspecified | CPT/HCPCS: 80061; 83036 ==

== ENCOUNTER → 2022-09-04 18:01 | Outpatient (BNVA) | payer BC, MEDICAID, SELFPAY | PROVIDERS: PCP Family Medicine Adult Medicine; Visit Provider Registered Nurse Neonatal Intensive Care | DX: N39.0 Urinary tract infection, site not specified (principal) | CPT/HCPCS: 81000; 87086 ==

== ENCOUNTER → 2022-11-05 09:53 | Outpatient (BNVA) | payer BC, MEDICAID, SELFPAY | PROVIDERS: PCP Family Medicine Adult Medicine; Visit Provider Nurse Practitioner Family | DX: R39.9 Unspecified symptoms and signs involving the genitourinary system (principal); N39.0 Urinary tract infection, site not specified | CPT/HCPCS: 81000; 87077; 87086; 87184 ==

== ENCOUNTER 2022-11-19 14:15 | Emergency (ER) | payer BC, MEDICAID, SELFPAY ==
[2022-11-19 14:27] VITALS: BP 128/89; PULSE 78; RESP 14; TEMP 36.9; O2SAT 95; BMI 30.7
--- NOTE | 2022-11-19 15:00 | XR_ITS ---
WS: [id number] EXAMINATION: XR foot LT min 3V* [id number] REASON FOR EXAM: cat bite COMPARISON: None available. ORDER DATE: 11/19/2022 3:03 PM TECHNIQUE: 3 views of the left foot were obtained. X-RAY FINDINGS: There are no fractures or dislocations. No focal abnormal soft tissue swelling. Joint spaces are pres erved. XR/XR foot LT min 3V* [id number] IMPRESSION: No fractures or dislocations of the left foot. The site of cat bite is not imme diately obvious however there is an increased risk of pasteurella multifidus in fection
--- NOTE | 2022-11-19 16:06 | ED_ITS ---
HPI - Animal Bite General: Chief Complaint: Animal Bite Stated Complaint: Cat Bite, heat to spot and pain Time Seen by Provider: 11/19/22 15:44 History of Present Illness: Patient is a 57-year-old female comes to the ED with cat bite to the left foot. Patient says cat bite occurred about 3 days ago and was unprovoked. He was behind her and scratched her left heel and then bit her left heel. The cat is a Year and a Half Old and a Indoor that her daughter has in house and does not go outside. She is unsure if it has received rabies vaccination. She immediately cleaned wound with some water and hydroperoxide. She has been cleaning wound daily with hydrogen peroxide and has been applying triple antibiotic ointment on cat bite daily. Cat bite is having some increased pain, redness and warmth. Denies any fevers. patient is unsure of her last tetanus shot. Associated symptoms: Deny chills, fever(s) or headache(s) Review of Systems Const: Denies: fever(s), chills or fatigue Eyes: Denies: change in vision or eye discomfort ENMT: Denies: throat pain, odynophagia, nasal discharge or nasal congestion Card: Denies: chest pain, palpitations, edema, swelling of feet/ankles, dyspnea on exertion or orthopnea Resp: Denies: dyspnea, productive cough or non-productive cough GI: Denies: abdominal pain, nausea, vomiting, diarrhea, constipation or hematochezia : Denies: flank pain, dysuria or hematuria Musc: Denies: neck pain, back pain or extremity swelling Skin/Breast: Reports: new lesions (Cat bite to left foot); Denies: rash Neuro: Denies: headache(s), numbness in extremities or weakness in extremities PFS ED PFSH: Medical History (Updated 11/19/22 @ 16:21 by BEATRIZ Gaytan) Abnormal weight gain Allergic rhinitis due to allergen Current nonsmoker quit smoking with weight gain 9 lbs Depression Dyslipidemia Elevated serum glucose normal A1C 5.2 08/31/2022 Fatigue Foot pain Neck and shoulder pain Postmenopausal Postprandial abdominal pain in right upper quadrant PUD (peptic ulcer disease) Recurrent urinary tract infection Sacroiliac inflammation Tendonitis Surgical History H/O esophagogastroduodenoscopy H/O shoulder surgery History of section History of colonoscopy 2018 Status post laparoscopic cholecystectomy (01/06/21) Dr. Steve with lab cholecystectomy on 01/06/2021 Family History Other Cancer Diabetes Heart disease Social History Smoking and tobacco status: current every day smoker e-cigarettes E-Cigarette Details: vaporizer device Quit status (tobacco): has quit using tobacco Former quit date comment: 02/2022- quit cigarettes Smoking risk assessment/counseling performed?: No Alcohol intake: never Desire information about alcohol rehabilitation?: No Counseling given: No Substance/Drug Use: never Desire information about substance/drug rehabilitation?: No Adopted: No Caregiver/support person: No Lives independently: Yes Household members: spouse Marital status: Number of children: 2 service: No Current occupational status: unemployed Do you think of yourself as: Straight/Heterosexual Current gender identity: Female Special micky needs: No Physical Exam Const: COMMON NORMALS: no acute distress, patient oriented x3, healthy appearing and alert HENMT: COMMON NORMALS: normocephalic HEAD & SCALP: normocephalic MOUTH: Normal oral and palatal mucosa present THROAT: posterior oropharynx normal and uvula midline Neck/C-Spine: COMMON NORMALS: supple GENERAL: Yes normal visual inspection Resp: COMMON NORMALS: normal respiratory effort, No retractions, No use of accessory muscles and clear to auscultation bilaterally AUSCULTATION: clear to auscultation bilaterally Cardio: COMMON NORMALS: regular rate, regular rhythm, S1 normal heart sound present, S2 normal heart sound present, No gallops present (Cardio), No clicks present (Cardio), No murmurs present (Cardio) and Peripheral pulses 2+ throughout RATE: regular rate RHYTHM: regular rhythm HEART SOUNDS: S1 normal heart sound present and S2 normal heart sound present PERIPHERAL PULSES: Peripheral pulses 2+ throughout GI: COMMON NORMALS: Normal to inspection, nondistended, normoactive bowel sounds present, Soft to palpation, non-tender and no masses PALPATION: Yes Soft to palpation : COMMON NORMALS: Yes no CVA tenderness BLADDER/KIDNEY EXAM: Yes no CVA tenderness Back/Pelvis: COMMON NORMALS: no CVA tenderness Extremity: NARRATIVE EXTREMITY EXAM: Left foot?superficial abrasions to heel of foot with multiple small bite blankenship/puncture wounds of heel. Surrounding erythema, warmth and tenderness to bite wounds. No purulent drainage seen. GENERAL: Yes normal exam except as noted Neuro: COMMON NORMALS: patient oriented x3 SENSORIUM/ORIENTATION: Yes alert GAIT: Yes Normal gait present Skin: GENERAL SKIN EXAM: dry skin Course Vital Signs: Vital signs: Vital Signs Temperature 98.4 F 11/19/22 14:27 Pulse Rate 78 11/19/22 14:27 Respiratory Rate 14 11/19/22 14:27 Blood Pressure 128/89 11/19/22 14:27 Pulse Oximetry 95 11/19/22 14:27 Oxygen Delivery Me thod Room Air 11/19/22 14:27 MDM - Animal Bite Medical Decision Making Patient is a 57-year-old female comes to the ED with cat bite to the left foot. Patient says cat bite occurred about 3 days ago and was unprovoked. He was behind her and scratched her left heel and then bit her left heel. The cat is a Year and a Half Old and a Indoor that her daughter has in house and does not go outside. She is unsure if it has received rabies vaccination. She immediately cleaned wound with some water and hydroperoxide. She has been cleaning wound daily with hydrogen peroxide and has been applying triple antibiotic ointment on cat bite daily. Cat bite is having some increased pain, redness and warmth. Denies any fevers. patient is unsure of her last tetanus shot. Left foot?superficial abrasions to heel of foot with multiple small bite blankenship/puncture wounds of heel. Surrounding erythema, warmth and tenderness to bite wounds. No purulent drainage seen. Vitals are stable. Left foot x-ray shows no acute findings. She was given updated tetanus here in the ED. She was diagnosed with cat bite and cat scratch. She was sent home with a prescription for Augmentin and azithromycin to cover cat scratch fever. She was told how to care for cat bite wound. Follow-up with her PCP in the next week for reevaluation. Return to ED precautions given. Patient understood and agreed with plan. Lab Data Radiology Impressions Foot X-Ray 11/19/22 15:00 IMPRESSION: No fractures or dislocations of the left foot. The site of cat bite is not immediately obvious however there is an increased risk of pasteurella multifidus infection Discharge Plan Discharge Patient Disposition: Home Clinical Impression: Cat bite of left foot, Cat scratch Condition: Stable Prescriptions: New Augmentin 500-125 mg tablet 1 tab PO BID 10 Days Qty: 20 0RF azithromycin 250 mg tablet See Rx Instructions .ROUTE .COMPLEX Qty: 6 0RF Rx Instructions: For 250 mg dose pack: take 500 mg today (day 1), then 250 mg for 4 days (days 2-5) No Action pantoprazole 40 mg tablet,delayed release (DR/EC) 40 mg PO DAILY cholecalciferol (vitamin D3) 125 mcg (5,000 unit) tablet 25 mcg PO DAILY Benadryl 2 % gel 1 applic topical BID PRN (Reason: itching) 5 Days Qty: 103 0RF loratadine 10 mg tablet 10 mg PO DAILY PRN (Reason: allergic symptoms & itching) Qty: 30 0RF fluticasone propionate [Flonase Allergy Relief] 50 mcg/actuation spray,suspension 1 spray intranasal DAILY Qty: 16 0RF Rx Instructions: administer into each nostril baclofen 20 mg tablet 20 mg PO TID Qty: 90 3RF lidocaine 5 % adhesive patch,medicated See Rx Instructions .ROUTE .COMPLEX Qty: 30 3RF Dose Instruction: USE 1 PATCH EXTERNALLY ONCE DAILY NEEDED (LEAVE ON FOR UP TO 12 HOURS) Rx Instructions: USE 1 PATCH EXTERNALLY ONCE DAILY NEEDED (LEAVE ON FOR UP TO 12 HOURS) bupropion HCl 300 mg tablet extended release 24 hr 300 mg PO QAM Qty: 30 2RF atorvastatin 20 mg tablet 20 mg PO DAILY Qty: 30 2RF multivitamin Tablet 1 tab PO DAILY@08 vitamin B complex Tablet 1 tab PO DAILY@08 venlafaxine 150 mg capsule,extended release 24hr 75 mg PO DAILY@08 cranberry 400 mg capsule 15,000 mg PO DAILY@08 Probiotic 5 billion cell Capsule, Sprinkle 1 cap PO DAILY Discharge Orders: Discharge ED (Routine); Ordered 11/19/22 Ordered By: Chirag Sawyer Referrals: Mo Lazaro MD [Primary Care Provider] - Discharge Diet: Regular Discharge Activity: Increase activity as tolerated Patient Instructions: Animal Bite (ED) Activity Restrictions/Additional Instructions: Follow-up with medical provider as directed in the next 5 to 7 days for reevaluation. Take 2 animal control and have it monitored for rabies or if you are unable to have cat monitored by animal control you can return to the ED and start rabies prophylaxis. Continue cleaning cat bite area daily with soap and water then apply triple antibiotic ointment and covered it with bandage. Take medications as prescribed. Return to the ER or your medical provider if condition worsens. Please read and understand discharge instructions. Thank you for choosing [facility] for your healthcare needs today. Please realize this is an emergency room and that we are providing you with a medical screening exam and this may not be complete and all inclusive of all the testing and or work up that you may need to determine your ailment or severity of your illness. It is very important that you follow up as instructed or that you return to the Emergency Department should you have concerns or if your condition changes or worsens in any way. Coding Level of Care Code ED Ripening Room Attendant for Alphonse Yancey
[2022-11-19] MEDS: tetanus-dipt-pertussis 0.5 mL SDV IM (16:42)
== END 2022-11-19 16:48 | disposition home or self-care (01) ==
PROVIDERS: Emergency Provider Physician Assistant; PCP Family Medicine Adult Medicine
DX: S91.352A Open bite, left foot, initial encounter (principal); W55.01XA Bitten by cat, initial encounter; S90.812A Abrasion, left foot, initial encounter; W55.03XA Scratched by cat, initial encounter; F17.290 Nicotine dependence, other tobacco product, uncomplicated; E78.5 Hyperlipidemia, unspecified; Z23 Encounter for immunization
CPT/HCPCS: 73630; 90471; 90715; 99283

== ENCOUNTER → 2023-01-17 11:59 | Outpatient (BNVA) | payer BC, MEDICAID, SELFPAY | PROVIDERS: PCP Family Medicine Adult Medicine; Visit Provider Family Medicine Adult Medicine | DX: M54.2 Cervicalgia (principal); M25.519 Pain in unspecified shoulder; R93.7 Abnormal findings on diagnostic imaging of other parts of musculoskeletal system | CPT/HCPCS: 73030 ==

== ENCOUNTER → 2023-02-01 13:00 | Outpatient (BNVA) | payer BC, MEDICAID, SELFPAY | PROVIDERS: PCP Family Medicine Adult Medicine; Visit Provider Registered Nurse Neonatal Intensive Care | DX: R30.0 Dysuria (principal); N39.0 Urinary tract infection, site not specified | CPT/HCPCS: 81000; 87086 ==

== ENCOUNTER → 2023-06-20 15:01 | Outpatient (BNVA) | payer BC, MEDICAID, SELFPAY | PROVIDERS: PCP Family Medicine Adult Medicine; Referring Provider Family Medicine Adult Medicine; Visit Provider Orthopaedic Surgery | DX: M50.121 Cervical disc disorder at C4-C5 level with radiculopathy (principal); M50.122 Cervical disc disorder at C5-C6 level with radiculopathy; M47.22 Other spondylosis with radiculopathy, cervical region | CPT/HCPCS: 72050 ==

== ENCOUNTER → 2023-07-09 12:28 | Outpatient (BNVA) | payer BC, MEDICAID, SELFPAY | PROVIDERS: PCP Family Medicine Adult Medicine; Visit Provider Nurse Practitioner Family | DX: R30.0 Dysuria (principal); N30.01 Acute cystitis with hematuria | CPT/HCPCS: 81000 ==

== ENCOUNTER → 2023-07-12 08:44 | Outpatient (BNVA) | payer BC, MEDICAID, SELFPAY | PROVIDERS: PCP Family Medicine Adult Medicine; Referring Provider Orthopaedic Surgery; Visit Provider Physician Assistant | DX: M65.311 Trigger thumb, right thumb | CPT/HCPCS: 73120 ==

== ENCOUNTER → 2023-07-15 11:22 | Outpatient (BNVA) | payer BC, MEDICAID, SELFPAY | PROVIDERS: PCP Family Medicine Adult Medicine; Visit Provider Nurse Practitioner | DX: R39.9 Unspecified symptoms and signs involving the genitourinary system (principal); R30.0 Dysuria; N30.01 Acute cystitis with hematuria | CPT/HCPCS: 81000; 87077; 87086; 87184 ==

== ENCOUNTER 2023-08-28 08:02 | Day surgery (SDC) | payer BC, MEDICAID, SELFPAY ==
[2023-08-28 08:17] VITALS: BP 118/89; PULSE 84; RESP 16; TEMP 36.3; O2SAT 95; BMI 33.3
[2023-08-28] MEDS: sodium chloride 0.9% 1,000 ML 30 ML IV (08:31)
[2023-08-28] MEDS: acetaminophen 1,000 MG/100 ML PIGGYBACK 400 MG IV ×2 (08:42→09:00)
[2023-08-28] MEDS: ketorolac 30 mg/mL INJ IVP (08:45)
[2023-08-28] MEDS: scopolamine 1.5 Patch 1 PATCH TRANSDERMA (08:52)
--- NOTE | 2023-08-28 08:53 | P.HP_ITS ---
Same Day Surgery H&P Indication for Procedure/HPI DATE OF PROCEDURE: August 28, 2023 CHIEF COMPLAINT/INDICATIONFOR SURGICAL PROCEDURE: Right thumb trigger PREOP DIAGNOSIS: Right thumb trigger PLANNED PROCEDURE: Operation Date: 08/28/23 09:35 Proposed Procedures p Trigger Finger Release/ Right thumb trigger release(Right) - Bobby Sawyer DO Medications/Allergies* Home Medications Medication Instructions Recorded Confirmed Type multivitamin 1 tab PO DAILY@08 05/09/20 08/27/23 History venlafaxine 150 mg 75 mg PO DAILY@08 08/31/22 08/27/23 History capsule,extended release 24 hr cholecalciferol (vitamin D3) 125 25 mcg PO DAILY 11/13/22 08/27/23 History mcg (5,000 unit) tablet bupropion HCl 300 mg 24 hr tablet, 300 mg PO QAM 08/27/23 08/27/23 History extended release fluticasone propionate 50 1 spray intranasal DAILY PRN 08/27/23 08/27/23 History mcg/actuation nasal Congestion spray,suspension (Flonase Allergy Relief) lidocaine 5 % topical patch 1 patch topical DAILY PRN Pain 08/27/23 08/27/23 History baclofen 20 mg tablet 20 mg PO BID PRN neck pain 08/28/23 08/28/23 History Allergies/Adverse Reactions Allergy/AdvReac Type Severity Reaction Status Date / Time cephalexin [From Keflex] Allergy Unknown Verified 08/27/23 09:18 Sulfa (Sulfonamide Allergy Unknown Verified 08/27/23 09:18 Antibiotics) sulfamethoxazole Allergy Unknown Verified 08/27/23 09:18 [From Bactrim] trimethoprim [From Bactrim] Allergy Unknown Verified 08/27/23 09:18 Current Medications: Generic Name Dose Route Start Last Admin Trade Name Freq PRN Reason Stop Dose Admin Sodium Chloride 1,000 mls @ 30 mls/hr 08/28/23 08:15 08/28/23 08:31 Sodium Chloride 0.9% IV 08/29/23 08:14 30 mls/hr .Q24H PIETER Administration Pertinent History/Comorbid Conditions* Medical History (Updated 08/05/23 @ 09:56 by Jamil Christy DO) Constipation Muscle tension headache BMI 30.0-30.9,adult Recurrent urinary tract infection Allergic rhinitis due to allergen Dyslipidemia Elevated serum glucose normal A1C 5.2 08/31/2022 Sacroiliac inflammation Fatigue Postmenopausal Current nonsmoker quit smoking with weight gain 9 lbs Metatarsalgia, right foot Foot pain Tendonitis Neck and shoulder pain PUD (peptic ulcer disease) Depression Postprandial abdominal pain in right upper quadrant Surgical History (Updated 07/25/23 @ 12:12 by Mo Lazaro MD) Status post laparoscopic cholecystectomy (01/06/21) Dr. Steve with lab cholecystectomy on 01/06/2021 H/O shoulder surgery History of section History of colonoscopy 01/03/[address] Betts H/O esophagogastroduodenoscopy 01/03/2018 with ulcer and repeat on 11/28/2020 and was normal EGD, Dr. Peace Family History (Updated 11/17/20 @ 14:02 by JACKELYN Uribe) Diabetes Heart disease Cancer Social History Smoking and tobacco/nicotine status: current every day tobacco/nicotine user e- cigarettes E-Cigarette Details: vaporizer device Quit status (tobacco/nicotine): has quit using Former quit date comment: 02/2022-quit cigarettes Alcohol intake: never Substance/Drug Use: never Adopted: No Caregiver/support person: No Lives independently: Yes Household members: spouse Marital status: Number of children: 2 service: No Current occupational status: unemployed Do you think of yourself as: Straight/Heterosexual Current gender identity: Female Special micky needs: No Pertinent Exam Findings alert, oriented x 3, operative site marked and procedure specific exam findings Patient has tenderness to palpation over the A1 manolo of the right thumb with mechanical triggering noted. Significant pain in this area with decreased range of motion Recommendations Surgery/Procedure today Other Plans: Plan proceed to the OR today with right thumb trigger release. Patient understands these and outs of procedure the risk benefits complication alternatives with surgery and through shared decision-making elects proceed with surgical intervention. All questions have been answered at this time. Coding Level of Care Code Acute Code for Chg Fwd
--- NOTE | 2023-08-28 08:55 | P.ANESASSM_ITS ---
Pre-Anesthetic Assessment Height/Weight: Height 1.65 m Weight 90.718 kg Temp Pulse Resp BP Pulse Ox O2 Del Method 97.3 F L 84 16 118/89 95 Room Air 08/28/23 08:17 08/28/23 08:17 08/28/23 08:17 08/28/23 08:17 08/28/23 08:17 08/28/23 08:17 Preop Diagnosis: Right thumb trigger Operation Date: 08/28/23 09:35 Proposed Procedures p Trigger Finger Release/ Right thumb trigger release(Right) - Bobby Olmsted, DO Familial anesthetic complications: None Was Beta Pablo taken within 24 hours: N/A Was Clonidine taken within 24 hours: N/A Last intake: Intake Last Liquid Date 08/27/23 Last Liquid Time 20:30 Last Solid Date 08/27/23 Last Solid Time 20:30 Social Tobacco and No alcohol Exam alert, oriented x 3, clear to auscultation bilaterally and regular rate & rhythm Airway Mallampati: Class II Dentition: full GI Gastroesophageal Reflux Disease and Peptic Ulcer Disease Anesthetic Plan ASA status: 2 Anesthesia: MAC Risk of > 500 ml blood loss (7ml/kg in children): No Medications/Allergies Home Medications Medication Instructions Recorded Confirmed Last Taken Type multivitamin 1 tab PO DAILY@05/09/20 08/27/23 08/27/23 History venlafaxine 150 mg 75 mg PO DAILY@08/31/22 08/27/23 08/27/23 History capsule,extended release 24 hr cholecalciferol (vitamin D3) 125 25 mcg PO DAILY 11/13/22 08/27/23 08/27/23 History mcg (5,000 unit) tablet ondansetron 8 mg disintegrating 8 mg PO Q8H PRN nausea and 12/30/22 08/27/23 Unknown Rx tablet vomiting 5 days #15 tabs pantoprazole 40 mg tablet,delayed 40 mg PO BID #60 tabs 07/26/23 08/27/23 08/27/23 Rx release atorvastatin 20 mg tablet 20 mg PO DAILY #90 tabs 08/27/23 08/28/23 08/28/23 Rx bupropion HCl 300 mg 24 hr tablet, 300 mg PO QAM 08/27/23 08/27/23 08/27/23 History extended release fluticasone propionate 50 1 spray intranasal DAILY PRN 08/27/23 08/27/23 Unknown History mcg/actuation nasal Congestion spray,suspension (Flonase Allergy Relief) lidocaine 5 % topical patch 1 patch topical DAILY PRN Pain 08/27/23 08/27/23 Unknown History baclofen 20 mg tablet 20 mg PO BID PRN neck pain 08/28/23 08/28/23 08/27/23 History Allergies Allergy/AdvReac Type Severity Reaction Status Date / Time cephalexin [From Keflex] Allergy Unknown Verified 08/27/23 09:18 Sulfa (Sulfonamide Allergy Unknown Verified 08/27/23 09:18 Antibiotics) sulfamethoxazole Allergy Unknown Verified 08/27/23 09:18 [From Bactrim] trimethoprim [From Bactrim] Allergy Unknown Verified 08/27/23 09:18 Current Medications Generic Name Dose Route Start Last Admin Trade Name Freq PRN Reason Stop Dose Admin Sodium Chloride 1,000 mls @ 30 mls/hr 08/28/23 08:15 08/28/23 08:31 Sodium Chloride 0.9% IV 08/29/23 08:14 30 mls/hr .Q24H PIETER Administration PFSH Anesthesia Medical History Constipation Muscle tension headache BMI 30.0-30.9,adult Recurrent urinary tract infection Allergic rhinitis due to allergen Dyslipidemia Elevated serum glucose normal A1C 5.2 08/31/2022 Sacroiliac inflammation Fatigue Postmenopausal Current nonsmoker quit smoking with weight gain 9 lbs Metatarsalgia, right foot Foot pain Tendonitis Neck and shoulder pain PUD (peptic ulcer disease) Depression Postprandial abdominal pain in right upper quadrant Surgical History Status post laparoscopic cholecystectomy (01/06/21) Dr. Steve with lab cholecystectomy on 01/06/2021 H/O shoulder surgery History of section History of colonoscopy 01/03/[address] Betts H/O esophagogastroduodenoscopy 01/03/2018 with ulcer and repeat on 11/28/2020 and was normal EGD, Dr. Peace Family History Other Cancer Diabetes Heart disease Social History Smoking and tobacco/nicotine status: current every day tobacco/nicotine user e- cigarettes E-Cigarette Details: vaporizer device Quit status (tobacco/nicotine): has quit using Former quit date comment: 02/2022-quit cigarettes Alcohol intake: never Substance/Drug Use: never Adopted: No Caregiver/support person: No Lives independently: Yes Household members: spouse Marital status: Number of children: 2 service: No Current occupational status: unemployed Do you think of yourself as: Straight/Heterosexual Current gender identity: Female Special micky needs: No Data Anesthesia Cardiac Studies: No Data to Display
[2023-08-28] MEDS: clindamycin 600 MG/50 ML PREMIX IV (09:03)
[2023-08-28] MEDS: ROPivacaine 0.5% SDV 30 mL 150 MG INJECTION (09:10)
[2023-08-28] MEDS: BUPivacaine 0.5% INJ 30 mL INJECTION (09:10)
--- NOTE | 2023-08-28 09:39 | P.BOP_ITS ---
Date of Procedure: 08/28/2023 Surgeon: Bobby Sawyer DO Social Work Lecturer(s): Chirag Sawyer PA-C Procedure(s) performed: Right thumb trigger release Findings of the procedure(s): Right thumb trigger underwent procedure as planned without issues or complications Estimated blood loss: 1 mL Specimen(s) removed: None Post-operative diagnosis: Right thumb trigger
--- NOTE | 2023-08-28 09:39 | PM.OP ---
Operative Report Date of procedure: August 28, 2023 Surgeon: Bobby Sawyer DO State Assessed Properties Director: Chirag Sawyer PA-C: PA was necessary for assistance in this case with hand positioning to execute the procedure, retraction and protection of neurovascular structures as well as to assist with wound closure and dressing application. Procedure: Preoperative diagnosis: Right thumb trigger post-op diagnosis: Right?thumb?trigger Procedure done: Right?thumb?trigger release Surgeon: Bobby Sawyer DO Estimated blood loss: 1 mL Tourniquet time: 8 minutes Anesthesia: General IV fluids: See anesthesia record Complications: None Findings: See operative report narrative Condition: stable Disposition: same day Brief History: Patient presents to the outpatient setting with findings consistent with a right?thumb?trigger. Patient has been worked up in the outpatient setting and is failed conservative treatment approach.? Patient has a right?thumb?trigger that she has tried treating conservatively with recurrence of her triggering pain.? We talked about treatment options and ultimately patient would like to proceed with a right?thumb?trigger release. At this point time I feel this is most appropriate as this is her next best step in treatment option.? We talked about the risk benefits complications and alternatives with surgical nonsurgical treatment options.? Understanding risk of surgery patient agrees to proceed with a right?thumb?trigger release. All questions answered. Procedure: Patient was seen evaluated in the preoperative holding area.? Consent was reviewed and signed with patient.? Correct extremity was then marked.? Patient was then seen and evaluated by the anesthesia department once cleared for surgery patient was then taken back to the operative suite patient was placed in supine position and all bony prominences well-padded the patient was properly secured to the bed.? Armboard was applied to the right upper extremity and the right upper extremity was then placed with a nonsterile tourniquet to the right upper arm.? This point time the right upper extremity was then prepped and draped in standard orthopedic fashion.? A final timeout was performed.? Patient received appropriate preoperative antibiotics. Esmarch tourniquet was used exsanguinate the right upper extremity and tourniquet was insufflated to 250 mmHg.? I identified patient's MP flexion crease marked appropriate incision transversely across the flexion crease within Joao's lines sharp scalpel incision was made only through skin.? Once this was done I switched to Littler dissection scissors this I then subsequently spread longitudinally in the planes of the digital nerves.? Once these were identified these were protected by my curriculum assistant principal with Kasdan retractors.? Next I identified directly over the A1 manolo of the right?thumb.? This was significantly thickened and identified to be the area of patient's?thumb?triggering.? I used sharp scalpel to incise the A1 manolo and then utilized my curriculum assistant principal to retract and under loupe magnification released the entirety of the A1 manolo both proximally and distally up to the oblique manolo.? This point time the tendon was then inspected and found to be healthy there was inflammation around the tendon itself but no evidence of tearing and no need for any debridement.? The Ragnell was used to pull the tendon out of the incision and there was no mechanical triggering I then took the patient's?thumb?through range of motion no recurrent triggering was noted.? I then did have anesthesia wake the patient up and she was able to actively flex and extend the digit follow commands and had no evidence of triggering of the right thumb. ?I then let the tourniquet down identified and maintained exact hemostasis with bipolar electrocautery irrigated the wound bed and then closed the incision with interrupted nylon suture. Incision sites were then dressed with Xeroform 4 x 4's Kerlix Nacho wrap and an Moise wrap.? Patient was then awakened from anesthesia and taken to PACU in stable condition. Disposition: Patient taken to PACU in stable condition recovering well.? Dressing on in place clean dry and intact.? Patient was receive appropriate discharge instruction as well as pain medication postoperatively.? Patient may be allowed weightbearing as tolerated to the right hand and encourage range of motion once dressing come down after 72 hours.? Patient to follow-up with me in the office in 2 weeks.? Patient understands and agrees with current plan.? All questions answered.
[2023-08-28 09:42] VITALS: BP 155/90; PULSE 80; RESP 18; TEMP 36.1; O2SAT 95
[2023-08-28 09:47] VITALS: BP 148/88; PULSE 77; RESP 18; O2SAT 95
[2023-08-28 09:52] VITALS: BP 166/92; PULSE 74; RESP 18; O2SAT 96
[2023-08-28 09:57] VITALS: BP 130/68; PULSE 78; RESP 16; TEMP 36.6; O2SAT 95
--- NOTE | 2023-08-28 09:57 | P.PCN_ITS ---
PACU note Narrative: Patient is a 58-year-old female just underwent a right trigger thumb release. patient transferred to PACU in stable condition. Pain is well controlled. Dressing on hand is dry and in place. Patient's fingers are warm and well- perfused. Patient can wiggle fingers. normal cap refill under 2 seconds. Patient has normal elbow range of motion. Sensation to hand intact. Exam: awake Disposition: discharged
[2023-08-28 10:13] VITALS: BP 134/85; PULSE 66; RESP 17; O2SAT 96
--- NOTE | 2023-08-28 10:45 | ANE.PACU2 ---
Inpatient post-anesthesia follow up: Airway intact: Yes Vital signs: Temperature 98 F Pulse Rate 66 Respiratory Rate 17 Blood Pressure 134/85 Pulse Oximetry 96 Oxygen Delivery Me thod Room Air Oxygen Flow Rate Fraction of Inspir ed Oxygen Hydration adequate: Yes Nausea and vomiting: No Pain level: 1 Mental status: Baseline
== END 2023-08-28 10:45 | disposition home or self-care (01) ==
PROVIDERS: PCP Family Medicine Adult Medicine; Visit Provider Student in an Organized Health Care Education/Training Program
PROC: (CPT 26055; principal; 2023-08-28 09:35)
DX: M65.311 Trigger thumb, right thumb (principal); K21.9 Gastro-esophageal reflux disease without esophagitis; Z87.11 Personal history of peptic ulcer disease; F17.200 Nicotine dependence, unspecified, uncomplicated; E78.5 Hyperlipidemia, unspecified
CPT/HCPCS: 26055; J0131; J1885; J2704; J2795; J3010; J3490; J7030

== ENCOUNTER 2023-09-11 08:34 | Day surgery (SDC) | payer BC, MEDICAID, SELFPAY ==
[2023-09-11 08:54] VITALS: BP 136/81; PULSE 86; RESP 16; TEMP 36.6; O2SAT 95; BMI 33.3
[2023-09-11] MEDS: sodium chloride 0.9% 1,000 ML 30 ML IV (09:00)
--- NOTE | 2023-09-11 09:03 | ANES.PREANE2 ---
Pre-Anesthetic Assessment Height/Weight: Height 1.65 m Weight 90.718 kg Temp Pulse Resp BP Pulse Ox O2 Del Method 97.8 F 86 16 136/81 95 Room Air 09/11/23 08:54 09/11/23 08:54 09/11/23 08:54 09/11/23 08:54 09/11/23 08:54 09/11/23 08:54 Preop Diagnosis: peptic ulcer Operation Date: 09/11/23 09:45 Proposed Procedures p EGD 43812 K27.9(Not Applicable) - Jamil Christy DO Familial anesthetic complications: None Was Beta Pablo taken within 24 hours: N/A Was Clonidine taken within 24 hours: N/A Last intake: Intake Last Liquid Date 09/10/23 Last Liquid Time 22:30 Last Solid Date 09/10/23 Last Solid Time 19:30 Social No alcohol and No tobacco Exam alert, oriented x 3 and regular rate & rhythm Airway Mallampati: Class II Dentition: full History/ROS No significant history except as noted Pulmonary None reported CV/HEM None reported None reported Hepatic None reported GI Gastroesophageal Reflux Disease peptic ulcer Metabolic Hyperlipidemia [facility] [place] None reported Neuropsych None reported Anesthetic Plan ASA status: 2 Anesthesia: Anesthesia Evaluation and MAC Risk of > 500 ml blood loss (7ml/kg in children): No Medications/Allergies Home Medications Medication Instructions Recorded Confirmed Last Taken Type multivitamin 1 tab PO DAILY@05/09/20 09/11/23 09/10/23 History venlafaxine 150 mg 75 mg PO DAILY@08/31/22 09/11/23 09/10/23 History capsule,extended release 24 hr cholecalciferol (vitamin D3) 125 25 mcg PO DAILY 11/13/22 09/10/23 09/08/23 History mcg (5,000 unit) tablet ondansetron 8 mg disintegrating 8 mg PO Q8H PRN nausea and 12/30/22 09/10/23 1 Week Ago Rx tablet vomiting 5 days #15 tabs ~09/02/23 pantoprazole 40 mg tablet,delayed 40 mg PO BID #60 tabs 07/26/23 09/11/23 09/11/23 Rx release atorvastatin 20 mg tablet 20 mg PO DAILY #90 tabs 08/27/23 09/11/23 09/10/23 Rx bupropion HCl 300 mg 24 hr tablet, 300 mg PO QAM 08/27/23 09/11/23 09/11/23 History extended release baclofen 20 mg tablet 20 mg PO BID PRN neck pain 08/28/23 09/11/23 09/10/23 History Allergies Allergy/AdvReac Type Severity Reaction Status Date / Time cephalexin [From Keflex] Allergy Unknown Verified 09/11/23 08:53 Sulfa (Sulfonamide Allergy Unknown Verified 09/11/23 08:53 Antibiotics) sulfamethoxazole Allergy Unknown Verified 09/11/23 08:53 [From Bactrim] trimethoprim [From Bactrim] Allergy Unknown Verified 09/11/23 08:53 Current Medications Generic Name Dose Route Start Last Admin Trade Name Freq PRN Reason Stop Dose Admin Sodium Chloride 1,000 mls @ 30 mls/hr 09/11/23 09:00 09/11/23 09:00 Sodium Chloride 0.9% IV 09/12/23 08:59 30 mls/hr .Q24H PIETER Administration PFSH Anesthesia Medical History Constipation Muscle tension headache BMI 30.0-30.9,adult Recurrent urinary tract infection Allergic rhinitis due to allergen Dyslipidemia Elevated serum glucose normal A1C 5.2 08/31/2022 Sacroiliac inflammation Fatigue Postmenopausal Current nonsmoker quit smoking with weight gain 9 lbs Metatarsalgia, right foot Foot pain Tendonitis Neck and shoulder pain PUD (peptic ulcer disease) Depression Postprandial abdominal pain in right upper quadrant Surgical History Status post laparoscopic cholecystectomy (01/06/21) Dr. Steve with lab cholecystectomy on 01/06/2021 H/O shoulder surgery History of section History of colonoscopy 01/03/[address] Betts H/O esophagogastroduodenoscopy 01/03/2018 with ulcer and repeat on 11/28/2020 and was normal EGD, Dr. Peace Family History Other Cancer Diabetes Heart disease Social History Smoking and tobacco/nicotine status: current every day tobacco/nicotine user e-cigarettes E-Cigarette Details: vaporizer device Quit status (tobacco/nicotine): has quit using Former quit date comment: 02/2022-quit cigarettes Alcohol intake: never Substance/Drug Use: never Adopted: No Caregiver/support person: No Lives independently: Yes Household members: spouse Marital status: Number of children: 2 service: No Current occupational status: unemployed Do you think of yourself as: Straight/Heterosexual Current gender identity: Female Special micky needs: No Data Anesthesia Cardiac Studies: No Data to Display
--- NOTE | 2023-09-11 09:21 | P.HP_ITS ---
Providers/Chief Complaint Primary Care Provider: Mo Lazaro MD Chief Complaint: K27.9 History of Present Illness Charito Israel is a 58 year old female Review of Systems General: Reports: 10 or more systems reviewed and unremarkable except in HPI and below Medications/Allergies Home Medications Medication Instructions Recorded Confirmed Last Taken Type multivitamin 1 tab PO DAILY@05/09/20 09/11/23 09/10/23 History venlafaxine 150 mg 75 mg PO DAILY@08/31/22 09/11/23 09/10/23 History capsule,extended release 24 hr cholecalciferol (vitamin D3) 125 25 mcg PO DAILY 11/13/22 09/10/23 09/08/23 History mcg (5,000 unit) tablet ondansetron 8 mg disintegrating 8 mg PO Q8H PRN nausea and 12/30/22 09/10/23 1 Week Ago Rx tablet vomiting 5 days #15 tabs ~09/02/23 pantoprazole 40 mg tablet,delayed 40 mg PO BID #60 tabs 07/26/23 09/11/23 09/11/23 Rx release atorvastatin 20 mg tablet 20 mg PO DAILY #90 tabs 08/27/23 09/11/23 09/10/23 Rx bupropion HCl 300 mg 24 hr tablet, 300 mg PO QAM 08/27/23 09/11/23 09/11/23 History extended release baclofen 20 mg tablet 20 mg PO BID PRN neck pain 08/28/23 09/11/23 09/10/23 History Allergies Allergy/AdvReac Type Severity Reaction Status Date / Time cephalexin [From Keflex] Allergy Unknown Verified 09/11/23 08:53 Sulfa (Sulfonamide Allergy Unknown Verified 09/11/23 08:53 Antibiotics) sulfamethoxazole Allergy Unknown Verified 09/11/23 08:53 [From Bactrim] trimethoprim [From Bactrim] Allergy Unknown Verified 09/11/23 08:53 PFSH Acute PFSH: Medical History Constipation Muscle tension headache BMI 30.0-30.9,adult Recurrent urinary tract infection Allergic rhinitis due to allergen Dyslipidemia Elevated serum glucose normal A1C 5.2 08/31/2022 Sacroiliac inflammation Fatigue Postmenopausal Current nonsmoker quit smoking with weight gain 9 lbs Metatarsalgia, right foot Foot pain Tendonitis Neck and shoulder pain PUD (peptic ulcer disease) Depression Postprandial abdominal pain in right upper quadrant Surgical History Status post laparoscopic cholecystectomy (01/06/21) Dr. Steve with lab cholecystectomy on 01/06/2021 H/O shoulder surgery History of section History of colonoscopy 01/03/[address] Betts H/O esophagogastroduodenoscopy 01/03/2018 with ulcer and repeat on 11/28/2020 and was normal EGD, Dr. Peace Family History Other Cancer Diabetes Heart disease Social History Smoking and tobacco/nicotine status: current every day tobacco/nicotine user e- cigarettes E-Cigarette Details: vaporizer device Quit status (tobacco/nicotine): has quit using Former quit date comment: 02/2022-quit cigarettes Alcohol intake: never Substance/Drug Use: never Adopted: No Caregiver/support person: No Lives independently: Yes Household members: spouse Marital status: Number of children: 2 service: No Current occupational status: unemployed Do you think of yourself as: Straight/Heterosexual Current gender identity: Female Special micky needs: No Vitals/I&O/Wt Last Vital Signs Temp 97.8 F 09/11/23 08:54 Pulse 86 09/11/23 08:54 Resp 16 09/11/23 08:54 BP 136/81 09/11/23 08:54 Pulse Ox 95 09/11/23 08:54 O2 Del Method Room Air 09/11/23 08:54 Weight last 48 hrs Weight 200 lb A&P Assessment and plan (1) GERD (gastroesophageal reflux disease): (2) Bloating: (3) Epigastric abdominal pain: (4) History of peptic ulcer disease: Plan EGD Attestations Medical Necessity Statement*: Home Coding Level of Care Code Acute Code for Chg Fwd Diagnoses GERD (gastroesophageal reflux disease) K21.9 Bloating R14.0 Epigastric abdominal pain R10.13 History of peptic ulcer disease Z87.11
[2023-09-11] MEDS: EPINEPHrine 1 mg/mL INJ XX (09:30)
[2023-09-11 09:36] VITALS: BP 117/77; PULSE 81; RESP 14; TEMP 36.1; O2SAT 96
[2023-09-11 09:49] VITALS: BP 118/77; PULSE 78; RESP 16; O2SAT 93
--- NOTE | 2023-09-11 15:25 | ANE.PACU2 ---
Inpatient post-anesthesia follow up: Airway intact: Yes Vital signs: Temperature 97.0 F Pulse Rate 78 Respiratory Rate 16 Blood Pressure 118/77 Pulse Oximetry 93 Oxygen Delivery Me thod Room Air Oxygen Flow Rate Fraction of Inspir ed Oxygen Hydration adequate: Yes Nausea and vomiting: No Pain level: 2 Mental status: Baseline
== END 2023-09-11 10:12 | disposition home or self-care (01) ==
PROVIDERS: PCP Family Medicine Adult Medicine; Visit Provider Surgery
PROC: 0DJ08ZZ Inspection of Upper Intestinal Tract, Via Natural or Artificial Opening Endoscopic (ICD-10-PCS; CPT 43235; principal; 2023-09-11 09:45)
DX: K21.00 Gastro-esophageal reflux disease with esophagitis, without bleeding (principal); R14.0 Abdominal distension (gaseous); R10.13 Epigastric pain; Z87.11 Personal history of peptic ulcer disease; E78.5 Hyperlipidemia, unspecified; F17.290 Nicotine dependence, other tobacco product, uncomplicated
CPT/HCPCS: 43239; 88305; 88342; J0171; J2704; J7030

== ENCOUNTER → 2023-09-12 13:01 | Outpatient (BNVA) | payer BC, MEDICAID, SELFPAY | PROVIDERS: PCP Family Medicine Adult Medicine; Visit Provider Orthopaedic Surgery | DX: M54.2 Cervicalgia (principal) | CPT/HCPCS: 72040 ==

== ENCOUNTER 2023-09-13 12:29 | Outpatient (CLI) | payer BC, MEDICAID, SELFPAY ==
--- NOTE | 2023-09-13 12:34 | MM_ITS ---
WS: [id number] BILATERAL 3D TOMOSYNTHESIS DIGITAL SCREENING MAMMOGRAPHY WITH CAD CLINICAL INFORMATION: Z12.39 - Encounter for other screening for malignant neop... HISTORY: Screening mammogram. No current complaints. COMPARISON: 09/10/2022 TECHNIQUE: Bilateral CC and MLO views. FINDINGS: Scattered fibroglandular densities bilaterally. No suspicious focal mass, asymmetry, calcifications, or architectural distortion. No evidence of malignancy. IMPRESSION: MM/[place] [id number] BI-RADS: 1-Negative FOLLOW UP: 1 Year Follow-up Recommend return to annual screening mammography.
== END 2023-09-13 12:30 | disposition home or self-care (01) ==
LOC: RAD 12:30
PROVIDERS: PCP Family Medicine Adult Medicine; Visit Provider Family Medicine Adult Medicine
DX: Z12.31 Encounter for screening mammogram for malignant neoplasm of breast
CPT/HCPCS: 77063; 77067

== ENCOUNTER → 2023-11-09 10:36 | Outpatient (BNVA) | payer BC, MEDICAID, SELFPAY | PROVIDERS: PCP Family Medicine Adult Medicine; Visit Provider Registered Nurse Neonatal Intensive Care | DX: N39.0 Urinary tract infection, site not specified (principal); R30.0 Dysuria | CPT/HCPCS: 81000; 87086 ==

== ENCOUNTER → 2023-12-12 15:24 | Outpatient (BNVA) | payer BC, MEDICAID, SELFPAY | PROVIDERS: PCP Family Medicine Adult Medicine; Visit Provider Orthopaedic Surgery | DX: M47.22 Other spondylosis with radiculopathy, cervical region (principal) | CPT/HCPCS: 72050 ==

== ENCOUNTER 2023-12-28 11:11 | Emergency (ER) | payer BC, MEDICAID, SELFPAY ==
[2023-12-28 11:37] VITALS: BP 139/85; PULSE 106; RESP 18; TEMP 36.7; O2SAT 94
--- NOTE | 2023-12-28 13:23 | ED_ITS ---
HPI - Neck Pain/Injury General: Chief Complaint: Neck Pain/Injury Stated Complaint: neck pain Time Seen by Provider: 12/28/23 13:05 Source: patient and family Mode of arrival: ambulatory Limitations: no limitations History of Present Illness: Patient is a nice 58-year-old female presents to ED today with complaint of neck pain. This seems to be an ongoing problem. She is been having issues with rad iculopathy into her bilateral upper extremities and nervelike sensations. She states she was recently evaluated by Dr. Willoughby and had MRI of her cervical spine performed. Results of this below: MR/MR cervical spin wo con* [id number] IMPRESSION: 1. Advanced degenerative disc disease a nd facet arthritis and osteophytosis at several levels in the cervical spine as above. 2. C3-4: Central disc protrusion and os teophyte disease. Mild central stenosis. 3. C4-5: Moderate central with moderate to severe bilateral foraminal stenosis, LEFT greater than RIGHT predominantly due to osteophytes. 4. C5-6: Mild central with mild to mode rate bilateral foraminal stenosis. 5. C6-7: Moderate to severe bilateral f oraminal stenosis due to disc osteophyte disease, RIGHT greater than LEFT. 6. Slight reversal of C4. Patient states she was referred to pain management and is currently waiting on this referral. Patient has tried muscle relaxers without much relief. She is hoping we can do something for the pain on today's visit. complaint: neck pain Onset (ago): month(s) Place: home Radiation: right upper extremity and left upper extremity Severity: severe Quality: burning and stabbing Duration: constant Relieving factors: none Exacerbating factors: movement of neck Associated symptoms: Reports no associated symptoms; Denies headache(s) Review of Systems Const: Denies: fever(s) Eyes: Denies: change in vision Musc: Reports: neck pain Neuro: Reports: sensory changes (intermittent; bilateral UEs); Denies: headache(s) or weakness in extremities PFSH ED PFSH: Medical History Encounter for HCV screening test for low risk patient CKD (chronic kidney disease) stage 2, GFR 60-89 ml/min Cr 0.9 GFR 65 04/10/2022 Constipation Muscle tension headache BMI 30.0-30.9,adult Recurrent urinary tract infection Allergic rhinitis due to allergen Dyslipidemia Elevated serum glucose normal A1C 5.2 08/31/2022 Sacroiliac inflammation Fatigue Postmenopausal Current nonsmoker quit smoking with weight gain 9 lbs Metatarsalgia, right foot Foot pain Tendonitis Neck and shoulder pain PUD (peptic ulcer disease) Depression Postprandial abdominal pain in right upper quadrant Surgical History Status post laparoscopic cholecystectomy (01/06/21) Dr. Steve with lab cholecystectomy on 01/06/2021 H/O shoulder surgery History of section History of colonoscopy 01/03/[address] Betts H/O esophagogastroduodenoscopy 01/03/2018 with ulcer and repeat on 11/28/2020 and was normal EGD, Dr. Peace Family History Other Cancer Diabetes Heart disease Social History Smoking and tobacco/nicotine status: never used tobacco/nicotine Quit status (tobacco/nicotine): has quit using Former quit date comment: 02/2022-quit cigarettes Alcohol intake: never Substance/Drug Use: never Adopted: No Caregiver/support person: No Lives independently: Yes Household members: spouse Marital status: Number of children: 2 service: No Current occupational status: unemployed Do you think of yourself as: Straight/Heterosexual Current gender identity: Female Special micky needs: No Physical Exam Const: COMMON NORMALS: no acute distress, average body habitus, patient oriented x3, no limitations, healthy appearing, alert and well nourished GENERAL APPEARANCE: cooperative ORIENTATION/CONSCIOUSNESS: Yes awake, Yes oriented to person, Yes oriented to place and Yes oriented to time HENMT: COMMON NORMALS: normocephalic and atraumatic HEAD & SCALP: normal to inspection, normocephalic and atraumatic Neck/C-Spine: COMMON NORMALS: no lymphadenopathy, supple, no meningeal signs and no JVD GENERAL: Yes normal visual inspection, No anterior neck swelling and No submandibular swelling CERVICAL SPINE: Yes pain with cervical ROM, Yes Cervical spine tenderness and No step off deformity Cardio: COMMON NORMALS: no JVD Extremity: COMMON NORMALS: full ROM GENERAL: Yes normal exam except as noted Neuro: COMMON NORMALS: patient oriented x3, moves all extremities, no focal motor deficits and no sensory deficits noted SENSORIUM/ORIENTATION: Yes alert, Yes oriented to person, Yes oriented to place and Yes oriented to time MENINGEAL SIGNS: Yes no meningeal signs MOTOR EXAM: 5/5 motor strength present throughout Course Vital Signs: Vital signs: Vital Signs Temperature 98.0 F 12/28/23 11:37 Pulse Rate 106 H 12/28/23 11:37 Respiratory Rate 18 12/28/23 13:44 Blood Pressure 139/85 12/28/23 11:37 Pulse Oximetry 94 12/28/23 11:37 Oxygen Delivery Me thod Room Air 12/28/23 11:37 MDM - Neck Pain/Injury Medical Decision Making Patient was recently had MRI imaging of her cervical spine. She is currently referred to pain management and awaiting this referral. Will attempt to give her some type of relief in the meantime. Otherwise she can follow-up with primary care and/or Dr. Willoughby. Medical Records I reviewed the patient's medical records. No radiology studies performed this visit Discharge Plan Discharge Patient Disposition: Home Clinical Impression: Cervical spondylosis Condition: Stable Prescriptions: New methocarbamol 500 mg tablet 1,000 mg PO Q8H Qty: 30 0RF ibuprofen 800 mg tablet 800 mg PO Q8H PRN (Reason: pain) Qty: 20 0RF hydrocodone-acetaminophen 5-325 mg tablet 1 tab PO Q6H PRN (Reason: pain) Qty: 14 0RF Medrol (Arturo) 4 mg tablets,dose pack See Rx Instructions .ROUTE .COMPLEX Qty: 21 0RF Rx Instructions: orally per package directions Discontinued cyclobenzaprine 10 mg tablet 10 mg PO TID 30 Days Qty: 90 0RF baclofen 20 mg tablet 20 mg PO BID PRN (Reason: neck pain) Qty: 60 3RF No Action cholecalciferol (vitamin D3) 125 mcg (5,000 unit) tablet 25 mcg PO DAILY ondansetron 8 mg tablet,disintegrating 8 mg PO Q8H PRN (Reason: nausea and vomiting) 5 Days Qty: 15 0RF atorvastatin 20 mg tablet 20 mg PO DAILY Qty: 90 0RF Rx Instructions: Take 1 tablet by mouth once daily bupropion HCl 300 mg tablet extended release 24 hr 300 mg PO QAM Qty: 90 1RF pantoprazole 40 mg tablet,delayed release (DR/EC) 40 mg PO BID Qty: 60 1RF multivitamin Tablet 1 tab PO DAILY@08 venlafaxine 150 mg capsule,extended release 24hr 75 mg PO DAILY@08 Discharge Orders: Discharge ED (Routine); Ordered 12/28/23 Ordered By: Sasha Chambers Referrals: Mo Lazaro MD [Primary Care Provider] - Coding Level of Care Code ED Extension Work Instructor for Alphonse Yancey
[2023-12-28] MEDS: orphenadrine 30 mg/mL Inj 2 mL 60 MG IM (13:43)
[2023-12-28 13:44] VITALS: RESP 18
[2023-12-28] MEDS: ketorolac 30 mg/mL INJ IM (13:44)
[2023-12-28] MEDS: morphine 4 mg/mL SDV 1 mL IM (13:44)
[2023-12-28] MEDS: dexamethasone 10 mg/mL INJ 8 MG IM (13:45)
[2023-12-28 15:09] VITALS: BP 139/81; PULSE 93; RESP 17; O2SAT 96
== END 2023-12-28 14:38 | disposition home or self-care (01) ==
PROVIDERS: Emergency Provider Physician Assistant; PCP Family Medicine Adult Medicine
DX: M47.812 Spondylosis without myelopathy or radiculopathy, cervical region (principal); Z87.891 Personal history of nicotine dependence; N18.2 Chronic kidney disease, stage 2 (mild); E78.5 Hyperlipidemia, unspecified
CPT/HCPCS: 96372; 99284; J1100; J1885; J2270; J2360

== ENCOUNTER 2024-04-28 12:22 | Emergency (ER) | payer BC, MEDICAID, SELFPAY ==
[2024-04-28] VITALS (7 sets, daily range): BP systolic 101–129; BP diastolic 62–83; PULSE 74–89; RESP 16–18; TEMP 36.7; O2SAT 93–98; BMI 33.3
[2024-04-28 13:03] LABS: Basophils % 0.7 %; Eosinophils # 0.2 10^3/uL (0.0-0.8); Eosinophils % 3.2 %; Hematocrit 37.8 % (36-47); Lymphocytes # 1.8 10^3/uL (0.8-4.8); Lymphocytes % 34.3 %; Mean Corpuscular HGB Conc 33.6 g/dL (30-55); Mean Corpuscular Volume 95.2 fl (85-98); Mean Platelet Volume 9.6 fL (7.4-10.4); Monocytes # 0.7 10^3/uL (0.2-0.9); Monocytes % 13.1 %; Neutrophils # 2.58 10^3/uL (1.8-7.7); Neutrophils % 48.3 %; Nucleated Red Blood Cells % 0 %; Platelet Count 275 10^3/cmm (157-399); Red Blood Count 3.97 10^6/uL (3.85-5.65); Red Cell Distribution Width 13.2 % (12.1-15.1); White Blood Count 5.34 10^3/uL (3.29-11.43)
[2024-04-28 13:15] LABS: Alanine Aminotransferase 27 U/L (0-33); Albumin Level 4.1 g/dL (3.5-5.2); Alkaline Phosphatase 101 U/L (35-105); Anion Gap 15.4 (5-19); Aspartate Amino Transferase 23 U/L (0-32); Blood Urea Nitrogen 14 mg/dL (6-20); Calcium 8.7 mg/dL (8.5-10.5); Carbon Dioxide 26 mmol/L (22-29); Chloride 104 mmol/L (98-107); Creatinine Clr Calc Pharmacy 77.6665; Globulin 2.8 g/dL (1.3-4.6); Glomerular Filtration Rate 64.8 mL/min (90-130); Glucose 90 mg/dL (65-115); Lipase 27 U/L (13-60); Osmolality Calculated 292 mOsm/kg (285-295); Potassium 4.4 mmol/L (3.5-5.1); Sodium 141 mmol/L (136-145); Total Bilirubin 0.2 mg/dL (0.15-1.2); Total Protein 6.9 g/dL (6.6-8.7)
--- NOTE | 2024-04-28 13:17 | ED_ITS ---
HPI - Nausea/Vomiting/Diarrhea 2 General: Chief complaint: Nausea/Vomiting/Diarrhea Stated complaint: d,n, feels week Time Seen by Provider: 04/28/24 12:43 Source: patient Mode of arrival: ambulatory Limitations: no limitations History of Present Illness: Patient is a 58-year-old female who presents to ED today for evaluation of diarrhea over the past 6 days. She was reportedly seen by Dr. Quintero and referred to the emergency department due to dehydration. She states over the past 6 days she has been having watery diarrhea. She states when it first started she was having upwards of 20+ diarrhea stools daily. She states she has not been able to eat secondary to nausea. She is not vomiting. She states because she has not been able to eat, her diarrhea has slowed and now reports approximately 5-10 episodes of watery diarrhea in a 24-hour period. She has not noticed any blood in her stool. She is not having any abdominal pain. She feels like she is weak secondary to dehydration. No known poor food exposures or sick contacts. She is caring for her mother who is on hospice. MD elicited complaint: diarrhea and other (feels weak) Onset (ago): day(s) Description of diarrhea: watery Associated nausea: Yes Associated abdominal pain: No Location of pain: None Severity: moderate Exacerbating factors: eating Relieving factors: none Associated symtoms: Reports nausea; Denies change in vision, chest pain, dizziness, dysuria, fatigue, headache(s), malaise, palpitations or syncope Related Data Home Medications Medication Instructions Recorded Confirmed multivitamin 1 tab PO DAILY@05/09/20 04/28/24 venlafaxine 150 mg 75 mg PO DAILY@08/31/22 04/28/24 capsule,extended release 24 hr cholecalciferol (vitamin D3) 125 25 mcg PO DAILY 11/13/22 04/28/24 mcg (5,000 unit) tablet acetaminophen 325 mg tablet 650 mg PO QID PRN Pain 04/28/24 04/28/24 (Tylenol) lactobacillus comb no.10 20 20,000 mmu cells PO DAILY 04/28/24 04/28/24 billion cell capsule (Probiotic) Previous Rx's Medication Instructions Recorded atorvastatin 20 mg tablet 20 mg PO DAILY #90 tabs 01/10/24 bupropion HCl 300 mg 24 hr tablet, 300 mg PO QAM #90 tabs 01/10/24 extended release hydrocodone 5 mg-acetaminophen 325 1 tab PO Q6H PRN pain 30 days #30 01/10/24 mg tablet tabs ondansetron 8 mg disintegrating 8 mg PO Q8H PRN nausea and 01/10/24 tablet vomiting #30 tabs methocarbamol 500 mg tablet 1,000 mg (2 x 500 mg) PO Q8H #180 03/20/24 tabs pantoprazole 40 mg tablet,delayed 40 mg PO BID #60 tabs 03/23/24 release ondansetron 4 mg disintegrating 4 mg PO Q8H PRN nausea and 04/28/24 tablet vomiting #14 tabs Allergies Allergy/AdvReac Type Severity Reaction Status Date / Time cephalexin [From Keflex] Allergy Unknown Verified 04/28/24 12:37 Sulfa (Sulfonamide Allergy Unknown Verified 04/28/24 12:37 Antibiotics) sulfamethoxazole Allergy Unknown Verified 04/28/24 12:37 [From Bactrim] trimethoprim [From Bactrim] Allergy Unknown Verified 04/28/24 12:37 Review of Systems 2 Const: Denies: fever(s), chills, body aches, fatigue or malaise Eyes: Denies: change in vision or blurry vision Card: Denies: chest pain, palpitations, irregular heart rhythm, lightheadedness, syncope or dyspnea on exertion Resp: Denies: dyspnea, productive cough or pain on inspiration GI: Reports: nausea and diarrhea; Denies: abdominal pain, vomiting, heartburn, hematochezia or melena : Denies: flank pain, dysuria or pelvic pain Musc: Denies: neck pain, back pain or joint pain Skin/Breast: Denies: rash Neuro: Denies: headache(s) or dizziness PFSH ED 2 PFSH: Medical History Splinter of buttock without major open wound Cervical stenosis of spinal canal 12/16/23 MR cervical 1. Advanced degenerative disc disease and facet arthritis and osteophytosis at several levels in the cervical spine as above. 2. C3-4: Central disc protrusion and osteophyte disease. Mild central stenosis. 3. C4-5: Moderate central with moderate to severe bilateral foraminal stenosis, LEFT greater than RIGHT predominantly due to osteophytes. 4. C5-6: Mild central with mild to moderate bilateral foraminal stenosis. 5. C6-7: Moderate to severe bilateral foraminal stenosis due to disc osteophyte disease, RIGHT greater than LEFT. 6. Slight reversal of C4. Poison jyothi dermatitis Trigger finger of right thumb CKD (chronic kidney disease) stage 2, GFR 60-89 ml/min Cr 0.9 GFR 65 04/10/2022 Constipation BMI 30.0-30.9,adult Recurrent urinary tract infection Allergic rhinitis due to allergen Dyslipidemia Elevated serum glucose normal A1C 5.2 08/31/2022 Sacroiliac inflammation Fatigue Current nonsmoker quit smoking with weight gain 9 lbs PUD (peptic ulcer disease) Depression Surgical History History of colonoscopy 01/03/[address] Betts H/O esophagogastroduodenoscopy 01/03/2018 with ulcer and repeat on 11/28/2020 and was normal EGD, Dr. Peace Status post laparoscopic cholecystectomy (01/06/21) Dr. Steve with lab cholecystectomy on 01/06/2021 H/O shoulder surgery History of section Family History Other Cancer Diabetes Heart disease Social History Smoking and tobacco/nicotine status: current every day tobacco/nicotine user e- cigarettes E-Cigarette Details: vaporizer device Quit status (tobacco/nicotine): has quit using Former quit date comment: 02/2022-quit cigarettes Alcohol intake: never Substance/Drug Use: never Adopted: No Caregiver/support person: No Lives independently: Yes Household members: spouse Marital status: Number of children: 2 service: No Current occupational status: unemployed Do you think of yourself as: Straight/Heterosexual Current gender identity: Female Special micky needs: No Physical Exam 2 Const: COMMON NORMALS: no acute distress, average body habitus, patient oriented x3, no limitations, healthy appearing, alert and well nourished G ENERAL APPEARANCE: cooperative ORIENTATION/CONSCIOUSNESS: Yes awake, Yes oriented to person, Yes oriented to place and Yes oriented to time HENMT: COMMON NORMALS: normocephalic and atraumatic HEAD & SCALP: normal to inspection, normocephalic and atraumatic Eye: COMMON NORMALS: no scleral icterus Neck/C-Spine: COMMON NORMALS: full ROM, no lymphadenopathy, supple and no meningeal signs Chest: COMMONS NORMALS: normal inspection of the chest Resp: COMMON NORMALS: normal respiratory effort and clear to auscultation bilaterally AUSCULTATION: clear to auscultation bilaterally Cardio: COMMON NORMALS: regular rate and regular rhythm RATE: regular rate RHYTHM: regular rhythm GI: COMMON NORMALS: Normal to inspection, nondistended, normoactive bowel sounds present, Soft to palpation, non-tender, No hepatosplenomegaly present and no masses PALPATION: Yes Soft to palpation and Yes No hepatosplenomegaly present : COMMON NORMALS: Yes no CVA tenderness BLADDER/KIDNEY EXAM: Yes no CVA tenderness Back/Pelvis: COMMON NORMALS: no CVA tenderness and thoracic and lumbar spine normal to inspection Extremity: COMMON NORMALS: normal to inspection GENERAL: Yes normal exam except as noted Neuro: COMMON NORMALS: patient oriented x3, moves all extremities, no focal motor deficits, no sensory deficits noted and gait normal S ENSORIUM/ORIENTATION: Yes alert, Yes oriented to person, Yes oriented to place and Yes oriented to time MENINGEAL SIGNS: Yes no meningeal signs Skin: COMMON NORMALS: no rashes or lesions noted GENERAL SKIN EXAM: no rashes or lesions noted Course 2 Vital Signs: Vital signs: Vital Signs Temperature 98.0 F 04/28/24 12:34 Pulse Rate 75 04/28/24 14:30 Respiratory Rate 16 04/28/24 13:17 Blood Pressure 118/74 04/28/24 14:30 Pulse Oximetry 96 04/28/24 14:30 Oxygen Delivery Me thod Room Air 04/28/24 14:30 MDM - Nausea/Vomiting/Diarrhea Medical Decision Making Patient here for diarrhea x 6 days. She has not been able to have a diarrhea stool over the past 3 hours during her ED stay so stool samples were not able to be collected. She is not tachycardic or hypotensive. Orthostatic vital signs were unremarkable. Due to critical shortage of IV fluids, these were held. She was given IV Zofran and was able to tolerate oral hydration here. Recommend follow-up with primary care if diarrhea persists and they may order stool samples. Low suspicion for C. difficile. She has had no recent antibiotic use. Her blood work here is unremarkable. She has a normal BUN/Cr. Electrolytes are normal. She does have elevated spec gravity on urine indicating some degree of dehydration. Ketones trace. Will give her a RX for zofran so she can continue with oral hydration at home. I did not feel emergent imaging was indicated due to her not having any abdominal pain. This would be unlikely to yield changes in her management. She was encouraged to follow-up with her primary care provider. Return to ED precautions given. Medical Records I reviewed the patient's medical records. Lab Data I reviewed the patient's lab results. 04/28/24 12:47 04/28/24 12:47 Laboratory Results WBC 5.34 10^3/uL (3.29-11.43) 04/28/24 12:47 RBC 3.97 10^6/uL (3.85-5.65) 04/28/24 12:47 Hgb 12.70 g/dL (11.27-16.99) 04/28/24 12:47 Hct 37.8 % (36-47) 04/28/24 12:47 MCV 95.2 fl (85-98) 04/28/24 12:47 MCH 32.0 pg (27-33) 04/28/24 12:47 MCHC 33.6 g/dL (30-55) 04/28/24 12:47 RDW 13.2 % (12.1-15.1) 04/28/24 12:47 Plt Count 275 10^3/cmm (157-399) 04/28/24 12:47 MPV 9.6 fL (7.4-10.4) 04/28/24 12:47 Neut % (Auto) 48.3 % 04/28/24 12:47 Lymph % (Auto) 34.3 % 04/28/24 12:47 Millard % (Auto) 13.1 % 04/28/24 12:47 Eos % (Auto) 3.2 % 04/28/24 12:47 Baso % (Auto) 0.7 % 04/28/24 12:47 Neut # (Auto) 2.58 10^3/uL (1.8-7.7) 04/28/24 12:47 Lymph # (Auto) 1.8 10^3/uL (0.8-4.8) 04/28/24 12:47 Millard # (Auto) 0.7 10^3/uL (0.2-0.9) 04/28/24 12:47 Eos # (Auto) 0.2 10^3/uL (0.0-0.8) 04/28/24 12:47 Baso # (Auto) 0.0 10^3/uL (0.0-0.1) 04/28/24 12:47 Nucleated RBC % (auto) 0 % 04/28/24 12:47 Nucleated RBCs # 0.0 /100WBC 04/28/24 12:47 Sodium 141 mmol/L (136-145) 04/28/24 12:47 Potassium 4.4 mmol/L (3.5-5.1) 04/28/24 12:47 Chloride 104 mmol/L (98-107) 04/28/24 12:47 Carbon Dioxide 26 mmol/L (22-29) 04/28/24 12:47 Anion Gap 15.4 (5-19) 04/28/24 12:47 BUN 14 mg/dL (6-20) 04/28/24 12:47 Creatinine 0.9 mg/dL (0.5-0.9) 04/28/24 12:47 GFR Calculation 64.8 mL/min (90-130) L 04/28/24 12:47 Glucose 90 mg/dL (65-115) 04/28/24 12:47 Calculated Osmolality 292 mOsm/kg (285-295) 04/28/24 12:47 Calcium 8.7 mg/dL (8.5-10.5) 04/28/24 12:47 Total Bilirubin 0.2 mg/dL (0.15-1.2) 04/28/24 12:47 AST 23 U/L (0-32) 04/28/24 12:47 ALT 27 U/L (0-33) 04/28/24 12:47 Alkaline Phosphatase 101 U/L (35-105) 04/28/24 12:47 Total Protein 6.9 g/dL (6.6-8.7) 04/28/24 12:47 Albumin 4.1 g/dL (3.5-5.2) 04/28/24 12:47 Globulin 2.8 g/dL (1.3-4.6) 04/28/24 12:47 Lipase 27 U/L (13-60) 04/28/24 12:47 Urine Color Dark yellow (Yellow) A 04/28/24 11:30 Urine Appearance Clear (CLEAR) 04/28/24 11:30 Urine pH 5.0 (5-7) 04/28/24 11:30 Ur Specific Lynndyl 1.046 (1.005-1.030) H 04/28/24 11:30 Urine Protein Trace (Negative) A 04/28/24 11:30 Urine Glucose (UA) Negative (Normal) 04/28/24 11:30 Urine Ketones Trace (Negative) 04/28/24 11:30 Urine Blood Negative (Negative) 04/28/24 11:30 Urine Nitrate Negative (Negative) 04/28/24 11:30 Urine Bilirubin 1+ (Negative) H 04/28/24 11:30 Urine Urobilinogen 1.0 mg/dL (Negative) 04/28/24 11:30 Ur Leukocyte Esterase Negative (Negative) 04/28/24 11:30 Urine RBC 0-2 /hpf (0-2) 04/28/24 11:30 Urine WBC 0-5 /hpf (0-5) 04/28/24 11:30 Ur Squamous Epith Cells 0-5 /hpf (0-5) 04/28/24 11:30 Amorphous Sediment Not Reportable 04/28/24 11:30 Urine Bacteria None seen /hpf (NONE) 04/28/24 11:30 Hyaline Casts 14.87 /lpf 04/28/24 11:30 No radiology studies performed this visit Discharge Plan Discharge Patient Disposition: Home Clinical Impression: Diarrhea Qualifiers: Diarrhea type: unspecified type Qualified Code(s): R19.7 - Diarrhea, unspecified Condition: Stable Prescriptions: New ondansetron 4 mg tablet,disintegrating 4 mg PO Q8H PRN (Reason: nausea and vomiting) Qty: 14 0RF No Action cholecalciferol (vitamin D3) 125 mcg (5,000 unit) tablet 25 mcg PO DAILY atorvastatin 20 mg tablet 20 mg PO DAILY Qty: 90 1RF Rx Instructions: Take 1 tablet by mouth once daily bupropion HCl 300 mg tablet extended release 24 hr 300 mg PO QAM Qty: 90 1RF hydrocodone-acetaminophen 5-325 mg tablet 1 tab PO Q6H PRN (Reason: pain) 30 Days Qty: 30 0RF ondansetron 8 mg tablet,disintegrating 8 mg PO Q8H PRN (Reason: nausea and vomiting) Qty: 30 1RF methocarbamol 500 mg tablet 1,000 mg PO Q8H Qty: 180 0RF pantoprazole 40 mg tablet,delayed release (DR/EC) 40 mg PO BID Qty: 60 1RF multivitamin Tablet 1 tab PO DAILY@08 venlafaxine 150 mg capsule,extended release 24hr 75 mg PO DAILY@08 acetaminophen [Tylenol] 325 mg Tablet 650 mg PO QID PRN (Reason: Pain) Probiotic 20 billion cell Capsule 20,000 mmu cells PO DAILY Rx Instructions: administer with a meal Discharge Orders: Discharge ED (Routine); Ordered 04/28/24 Ordered By: Sasha Chambers Referrals: Mo Lazaro MD [Primary Care Provider] - Patient Instructions: Diarrhea - Adult, Acute Diarrhea (ED) Activity Restrictions/Additional Instructions: As we discussed, with the help of the oral Zofran, I would like you to continue pushing fluids and oral hydration is much as possible. Please follow-up with primary care and if diarrhea persists, they may want to order stool samples as you are not able to give a sample on today's ED visit. You need to return to the emergency department for onset of abdominal pain, fevers, bloody diarrhea, worsening diarrhea or vomiting, generally feeling worse or unwell, or any other concerns you may have. Hope you begin to feel better soon. Coding Level of Care Code ED Resistor Coater for Alphonse Yancey
[2024-04-28] MEDS: ondansetron 2 mg/ML SDV 2 mL 4 MG IVP (13:26)
[2024-04-28 13:45] LABS: Bilirubin Urine 1+ (Negative); Blood Urine Negative (Negative); Glucose Urine UA Negative (Normal); Ketones Urine Trace (Negative); Leukocyte Esterase Urine Negative (Negative); Nitrate Urine Negative (Negative); Protein Urine Trace (Negative); Urine Appearance Clear (CLEAR); Urine Color Dark Yellow (Yellow)
[2024-04-28 13:50] LABS: Add Urine Microscopic? YES; Bacteria Urine None Seen /hpf; Hyaline Casts Urine 14.87 /lpf; RBC Urine 0-2 /hpf (0-2); Squamous Epithelial Cell Urine 0-5 /hpf (0-5); WBC Urine 0-5 /hpf (0-5)
[2024-04-28 14:11] LABS: Specific Gravity, Urine 1.046 (1.005-1.030); UA Slide Review UA Slide Review Perf
--- NOTE | 2024-04-28 14:27 | PC.NURSE ---
pt has tolerated water po okay with no difficultly after nausea medication. PT given food to encourage stool sample.
--- NOTE | 2024-04-28 14:59 | PC.NURSE ---
Pt unable to give stool sample at this time, states she took an anti-diarrheal this morning. Trish notified.
== END 2024-04-28 15:34 | disposition home or self-care (01) ==
PROVIDERS: Emergency Medicine; Emergency Provider Physician Assistant; PCP Family Medicine Adult Medicine
DX: R19.7 Diarrhea, unspecified (principal); F17.290 Nicotine dependence, other tobacco product, uncomplicated; N18.2 Chronic kidney disease, stage 2 (mild); E78.5 Hyperlipidemia, unspecified
CPT/HCPCS: 80053; 81001; 83690; 85025; 96374; 99284; J2405

== ENCOUNTER → 2024-06-08 09:49 | Outpatient (BNVA) | payer BC, MEDICAID, SELFPAY | PROVIDERS: PCP Family Medicine; Visit Provider Family Medicine | DX: E78.5 Hyperlipidemia, unspecified (principal); R55 Syncope and collapse; K27.9 Peptic ulcer, site unspecified, unspecified as acute or chronic, without hemorrhage or perforation; K59.04 Chronic idiopathic constipation | CPT/HCPCS: 80061; 82607; 84439; 84443 ==

== ENCOUNTER → 2024-06-21 10:12 | Outpatient (BNVA) | payer BC, MEDICAID, SELFPAY | PROVIDERS: PCP Family Medicine; Visit Provider Registered Nurse Neonatal Intensive Care | DX: R39.9 Unspecified symptoms and signs involving the genitourinary system (principal) | CPT/HCPCS: 81000 ==

== ENCOUNTER → 2024-06-24 09:07 | Outpatient (BNVA) | payer BC, MEDICAID, SELFPAY | PROVIDERS: PCP Family Medicine | DX: J02.9 Acute pharyngitis, unspecified (principal); R11.10 Vomiting, unspecified | CPT/HCPCS: 87400; 87426; 87880 ==

== ENCOUNTER 2024-09-14 10:34 | Outpatient (CLI) | payer BC, MEDICAID, SELFPAY ==
--- NOTE | 2024-09-14 10:39 | MM_ITS ---
WS: [id number] BILATERAL 3D TOMOSYNTHESIS DIGITAL SCREENING MAMMOGRAPHY WITH CAD CLINICAL INFORMATION: SCREENING HISTORY: Screening mammogram. No current complaints. COMPARISON: 2023 TECHNIQUE: Bilateral CC and MLO views. FINDINGS: Scattered fibroglandular densities bilaterally. No suspicious focal mass, asymmetry, calcifications, or architectural distortion. No evidence of malignancy. A few tiny incidental punctate calcifications. MM/MM scr tomosynthesis [id number] IMPRESSION: DENSITY: There are scattered areas of fibroglandular density. BI-RADS: 2 - Benign. FOLLOW UP: 1 Year Follow-up Recommend return to annual screening mammography.
== END 2024-09-14 10:35 | disposition home or self-care (01) ==
PROVIDERS: PCP Family Medicine; Visit Provider Nurse Practitioner Family
DX: Z12.31 Encounter for screening mammogram for malignant neoplasm of breast (principal); R92.323 Mammographic fibroglandular density, bilateral breasts
CPT/HCPCS: 77063; 77067

== ENCOUNTER → 2024-09-29 15:12 | Outpatient (BNVA) | payer BC, MEDICAID, SELFPAY | PROVIDERS: PCP Family Medicine; Visit Provider Orthopaedic Surgery | DX: Z53.9 Procedure and treatment not carried out, unspecified reason (principal); M54.2 Cervicalgia | CPT/HCPCS: 72050 ==

== ENCOUNTER 2024-09-29 15:53 | Outpatient (CLI) | payer BC, MEDICAID, SELFPAY ==
--- NOTE | 2024-09-29 | XR_ITS ---
WS: [id number] Exam: XR cervical spine 4-5V [id number] Date/Time of Exam: 09/29/2024 12:00 AM Reason For Exam: NECK PAIN Comparison 12/12/2023. No fracture. There is degenerative disc change and spondylosis from C4-C6. Facet DJD at all levels. No significant flexion or extension instability. There is limited flexion. Paraspinal soft tissues are unremarkable. The dens is intact. XR/XR cervical spine 4-5V [id number] IMPRESSION: 1. No flexion or extension instability. 2. Degenerative changes from C4-C6 as detailed above. Limited flexion.
== END 2024-09-29 15:54 | disposition home or self-care (01) ==
LOC: RAD 10-07 10:35
PROVIDERS: PCP Family Medicine; Visit Provider Orthopaedic Surgery
DX: M50.322 Other cervical disc degeneration at C5-C6 level (principal); M50.321 Other cervical disc degeneration at C4-C5 level; M47.892 Other spondylosis, cervical region
CPT/HCPCS: 72050

== ENCOUNTER → 2024-10-06 11:07 | Outpatient (BNVA) | payer BC, MEDICAID, SELFPAY | PROVIDERS: PCP Family Medicine | DX: R39.9 Unspecified symptoms and signs involving the genitourinary system (principal) | CPT/HCPCS: 81000; 87086 ==

== ENCOUNTER → 2024-10-08 14:59 | Outpatient (BNVA) | payer BC, MEDICAID, SELFPAY | PROVIDERS: PCP Family Medicine; Visit Provider Nurse Practitioner | DX: K92.1 Melena (principal) | CPT/HCPCS: 82270 ==

== ENCOUNTER → 2024-10-12 10:32 | Outpatient (BNVA) | payer BC, MEDICAID, SELFPAY | PROVIDERS: PCP Family Medicine; Visit Provider Specialist | DX: M19.011 Primary osteoarthritis, right shoulder (principal) | CPT/HCPCS: 73030 ==

== ENCOUNTER → 2024-12-26 16:01 | Outpatient (BNVA) | payer BC, SELFPAY | PROVIDERS: PCP Family Medicine; Visit Provider Emergency Medicine | DX: N39.0 Urinary tract infection, site not specified (principal) | CPT/HCPCS: 81000 ==

== ENCOUNTER → 2025-03-08 11:55 | Outpatient (BNVA) | payer BC, MEDICAID, SELFPAY | PROVIDERS: PCP Family Medicine; Visit Provider Family Medicine | DX: R10.84 Generalized abdominal pain (principal); R19.4 Change in bowel habit; R11.0 Nausea | CPT/HCPCS: 80053; 83690; 84443; 85025; 86003; 86008 ==

== ENCOUNTER 2025-03-22 07:12 | Outpatient (CLI) | payer BC, MEDICAID, SELFPAY ==
--- NOTE | 2025-03-22 07:30 | US_ITS ---
WS: [id number] RIGHT UPPER QUADRANT ULTRASOUND HISTORY: chronic nausea COMPARISON: 11/28/2020 Liver: 16.2 cm in length. Normal size liver and echogenicity. No bile duct dilatation or mass. Portal Vein: Normal hepatopetal flow with monophasic waveform. Gallbladder: Normally distended gallbladder with no stones or wall thickening. CBD: 0.4 cm Pancreas: Normal size and echogenicity. Right kidney: 9.9 cm in length. Normal size and echogenicity. No hydronephrosis or mass. Parapelvic cyst central renal pelvis measures 1.8 x 2.0 x 1.0 cm. Also noted on the CT from 11/20/2017. Aorta and IVC: Unremarkable abdominal aorta and IVC. No ascites. US/US abdomen limited [id number] IMPRESSION: 1. Negative gallbladder. 2. No intrahepatic duct dilatation. 3. No acute abnormalities identified.
== END 2025-03-22 07:13 | disposition home or self-care (01) ==
LOC: RAD 07:13
PROVIDERS: PCP Family Medicine; Visit Provider Family Medicine
DX: R11.0 Nausea (principal); R10.84 Generalized abdominal pain; N28.1 Cyst of kidney, acquired
CPT/HCPCS: 76705